=== PATIENT | male | born 1950 | race Caucasian/White ===

== ENCOUNTER 2021-10-02 10:55 | Outpatient (CLI) | payer MEDICARE, OTHER, SELFPAY ==
--- NOTE | ~2021-10-02 | US_ITS ---
EXAMINATION: US carotid duplex BI DATE: 10/02/2021 11:26 INDICATION: Carotid stenosis TECHNIQUE: Grayscale, color Doppler, and pulsed Doppler images of the cervical carotid arteries were obtained. The degree of vessel stenosis is placed in one of the following categories: normal, <50%, 5 0-69%, >=70% but less than near-occlusion, near-occlusion, or total occlusion. Note that percent sten osis relative to normal distal artery lumen diameter is indirectly measured from velocity measurement s as described by Scar, et al. Radiology 2003; 229:340-346. COMPARISON: 09/29/2021 FINDINGS: RIGHT: The right common carotid artery (CCA) peak systolic velocity (PSV) is 110 cm/s. The right internal ca rotid artery (ICA) PSV is 166 cm/s. The right ICA end-diastolic velocity (EDV) is 30 cm/s. The right ICA/CCA PSV ratio is 1.5. Grayscale and color Doppler images yield an estimate of 50-69% diameter red uction from plaque in the ICA. The external carotid artery (ECA) PSV is 155 cm/s. There is antegrade flow in the right vertebral artery. LEFT: The left CCA PSV is 135 cm/s. The left ICA PSV is 118 cm/s. The left ICA EDV is 30 cm/s. The left ICA /CCA PSV ratio is 0.9. Grayscale and color Doppler images yield an estimate of <50% diameter reductio n from plaque in the ICA. The ECA PSV is 100 cm/s. There is antegrade flow in the left vertebral tanya ry. IMPRESSION: 1. 50-69% stenosis in the right internal carotid artery. 2. <50% stenosis in the left internal carotid artery. Reviewed, dictated and finalized at location A.
== END 2021-10-02 10:56 | disposition home or self-care (01) ==
LOC: ANHIMG 11:01
PROVIDERS: PCP Internal Medicine; Visit Provider Internal Medicine Cardiovascular Disease
DX: I65.23 Occlusion and stenosis of bilateral carotid arteries (principal)
CPT/HCPCS: 93880

== ENCOUNTER 2024-05-10 12:27 | Outpatient (CLI) | payer MEDICARE, SELFPAY ==
--- NOTE | ~2024-05-10 | US_ITS ---
EXAMINATION: US carotid duplex BI DATE: 05/10/2024 13:48 INDICATION: Carotid stenosis TECHNIQUE: Grayscale, color Doppler, and pulsed Doppler images of the cervical carotid arteries were obtained. The degree of vessel stenosis is placed in one of the following categories: normal, <50%, 5 0-69%, >=70% but less than near-occlusion, near-occlusion, or total occlusion. Note that percent sten osis relative to normal distal artery lumen diameter is indirectly measured from velocity measurement s as described by Scar, et al. Radiology 2003; 229:340-346. Notes: Normal: Peak systolic velocity <125 centimeters/sec and no plaque <50%. Peak systolic velocity <125 ( EDV <40; ICA/CCA PSV ratio <2.0; used these factors only a tandem lesions or low cardiac output or co ntralateral disease) 50-69 %: PSV 125-230 (EDV 40-100; ratio 2-4) >= 70% but less than near occlusion: PSV greater than 230 (EDV > 100; ratio> 4.0) Near Occlusion: PSV that is variable; markedly narrowed lumen Occlusion: Absent flow on color/spectral Doppler and no lumen on ross scale. COMPARISON: None. FINDINGS: RIGHT: The right common carotid artery (CCA) peak systolic velocity (PSV) is 101 cm/s. The right internal ca rotid artery (ICA) PSV is 179 cm/s. The right ICA end-diastolic velocity (EDV) is 36 cm/s. The right ICA/CCA PSV ratio is 1.8. The external carotid artery (ECA) PSV is 162 cm/s. There is antegrade flow in the right vertebral artery. LEFT: The left CCA PSV is 144 cm/s. The left ICA PSV is 119 cm/s. The left ICA EDV is 19 cm/s. The left ICA /CCA PSV ratio is 0.8. The ECA PSV is 93 cm/s. There is antegrade flow in the left vertebral artery. IMPRESSION: 1. 50-69% stenosis in the right internal carotid artery by sonographic criteria. 2. Less than 50% stenosis in the left internal carotid artery by sonographic criteria. Reviewed, dictated and finalized at location A. IMPRESSION: 1. 50-69% stenosis in the right internal carotid artery by sonographic criteria . 2. Less than 50% stenosis in the left internal carotid artery by sonographic cr iteria.
--- OUTSIDE RECORDS SUMMARY | 2024-05-10 13:33 | XMS_ITS | Clinical Summary ---
Author Organization [facility] [place] [address] Address [address] [place] [address] Care Team Providers Care Sales Inspector Name Role Phone Rommel Soto MD Primary Care Provider Allergies No known active allergies Medications metFORMIN (GLUCOPHAGE) 1,000 mg tablet take 1 tablet by oral route 2 times every day with morning and evening meals 0 0 12/12/19 15 Active aspirin (ASPIR-81) 81 mg tablet take 1 tablet by oral route every day 0 0 12/12/19 15 Active glimepiride (AMARYL) 2 mg tablet take 1 tablet by oral route every day 0 0 12/12/19 15 Active multivitamin tablet tablet take 1 tablet by oral route every day with food 0 0 07/09/19 16 Active nitroglycerin (NITROLINGUAL) 400 mcg/spray spray Place 1 spray under the tongue every 5 (five) minutes as needed for chest pain 4.9 g 2 12/31/19 21 Active Farxiga 5 mg tablet 02/28/19 22 Active rosuvastatin (CRESTOR) 20 mg tablet Take 1 tablet (20 mg total) by mouth daily 90 tablet 3 04/28/19 25 Active lisinopriL (PRINIVIL,ZEST RIL) 40 mg tablet Take 1 tablet (40 mg total) by mouth daily 90 tablet 3 04/28/19 25 Active metoprolol XL (TOPROL-XL) 50 mg extended release tablet Take 1 tablet (50 mg total) by mouth daily 90 tablet 3 04/28/19 25 Active metoprolol XL (TOPROL-XL) 50 mg extended release tablet Take 1 tablet (50 mg total) by mouth daily 90 tablet 02/16/19 25 025 Discontinued(Re order) rosuvastatin (CRESTOR) 20 mg tablet Take 1 tablet (20 mg total) by mouth daily 90 tablet 02/16/19 25 025 Discontinued lisinopriL (PRINIVIL,ZEST RIL) 40 mg tablet TAKE 1 TABLET(40 MG) BY MOUTH DAILY 90 tablet 03/10/19 25 025 Discontinued(Re order) rosuvastatin (CRESTOR) 20 mg tablet TAKE 1 TABLET(20 MG) BY MOUTH DAILY 30 tablet 04/25/19 25 025 Discontinued(Re order) Active Problems Problem Noted Date Diagnosed Date Carotid stenosis, bilateral 03/25/2021 Abnormal stress test 05/14/2020 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) 07/09/2015 Overview (05/22/2016): DM type 2 with diabetic dyslipidemia Hypertension associated with diabetes 12/11/2014 Overview (05/21/2016): HTN (hypertension), benign Simple obesity 12/11/2014 Overview (05/21/2016): Obesity due to excess calories, unspecified obesity severity Coronary artery disease invo lving s[place] coronary artery of [place] heart without angina pectoris 12/11/2014 Overview (05/21/2016): Coronary artery disease involving [place] coronary artery of [place] heart without angina pectoris History of coronary artery bypass surgery 2014 Overview (05/21/2016): S/P CABG (coronary artery bypass graft) Peripheral arterial occlusive disease 12/11/2014 Overview (05/21/2016): PAD (peripheral artery disease) Resolved Problems Problem Noted Date Diagnosed Date Resolved Date Carotid artery disease ([facility]) 12/30/2015 03/25/2021 Overview (05/21/2016): Bilateral carotid artery disease Dyslipidemia 12/11/2014 03/25/2021 Overview (05/21/2016): Mixed dyslipidemia Encounters Date Type Department Care Team Description 04/27/2024 8:00 AM CDT Office Visit [facility] Cardiology [address] [place] [address] Alec Carrion MD Coronary artery disease involving sokaogon coronary artery of [place] heart without angina pectoris (Primary Dx); Carotid stenosis, bilateral; Mixed 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 (CMS/HCC) (HCC); History of coronary artery bypass surgery; Hypertension associated with diabetes ([facility]) 04/27/2024 Orders Only [facility] Cardiology [address] [place] [phone] ProviderGrace MD 02/17/2024 Telephone [facility] Cardiology [address] [place] [phone] Alec Carrion MD from Last 3 Months Surgical History Surgery Date Site/Laterality Comments ANGIOPLASTY 06/2009 CORONARY ARTERY BYPASS GRAFT 09/24/1999 Medical History Medical History Date Comments Hypertension Coronary artery disease Diabetes mellitus (HCC) 09/24/1999 Heart disease 09/24/1999 Family History Medical History Relation Name Comments Early Brother 2 Elijah Paezt Other Brother 2 Elijah Redman Alive and well; Heart attack Father Qamar Redman Myocardial infa rction; Cause of : Myocardial infarction Stroke Mother Basia Redman Stroke; Other Sister 2 Alive and well; Relation Name Status Comments Brother 1 Alive Brother 2 Elijah Юлия Father Qamar Redman (Age 57) Mother Basia Redman (Age 79) Sister 1 Alive Sister 2 Social History Tobacco Use Types Packs/Day Years Used Date Smoking Tobacco: Never Smokeless Tobacco: Never Tobacco Cessation:Counseling Given: Not Answered Alcohol Use Standard Drinks/Week Comments Yes 0 (1 standard drink = 0.6 oz pur e alcohol) Sex and Gender Information Value Date Recorded Sex Assigned at Not on file Legal 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 Gender Identity Male 01/02/2020 4:19 PM [employer]ED PROJECT ENGINEER Sexual Orientation Straight 01/02/2020 4: 19 PM FEED PROJECT ENGINEER Obstetrics History Last Filed Vital Signs Vital Sign Reading Time Taken Comments Blood Pressure 160/80 04/27/2024 7:47 AM CDT Pulse 81 04/27/2024 7:47 AM CDT Temperature - - Respiratory Rate 12 12/25/2016 2:19 PM FEED PROJECT ENGINEER Oxygen Saturation 97% 04/27/2024 7:47 AM CDT Inhaled Oxygen Concentration - - Weight 83.3 kg (183 lb 11.2 oz) 04/27/2024 7:47 AM CDT Height 182.9 cm (6') 04/27/2024 7:47 AM CDT Body Mass Index 24.91 04/27/2024 7:47 AM CDT Plan of Treatment Health Maintenance Due Date Last Done Comments Albumin Creatinine Ratio, Urine 1948 Colon Cancer Screening-Colonoscopy 1948 Depression Screening 1948 Fall Risk Assessment 1948 Hemoglobin A1C 1948 Hepatitis C Screening 1948 eGFR 1948 Dilated Eye Exam 1948 Foot Exam 1948 DTaP/Tdap/Td Vaccine (1 - Tdap) 09/05/1959 Hepatitis B Screening 1966 Zoster Vaccine (2 of 3) 04/01/2012 02/05/2012 Well Visit 65+ 2013 Covid-19 Vaccine (8 - 2023-2 5 season) 2024 11/01/2023, 11/28/2022, 10/22/2021, Additional history exists Lipid Panel 04/27/2025 04/27/2024, 08/2024, 11/02/2022, Additional history exists Pneumococcal vaccine 65+ Completed 03/22/2017, 03/18 Influenza Vaccine Completed 11/01/2023, , 11/14/2021, Additional history exists Procedures Procedure Name Priority Date/Time Associated Diagnosis Comments POCT LIPID PANEL Routine 04/27/2024 8:38 AM CDT Carotid stenosis, bilateral LIPID PANEL Routine 04/21/2024 10:39 AM FEED PROJECT ENGINEER SCAN - LABS Routine 04/21/2024 8:23 AM FEED PROJECT ENGINEER from Last 3 Months Results * POCT lipid panel (04/27/2024 8:38 AM CDT) Cholesterol, POC 106 mg/dL Comment:GLU = 196 HDL, POC 29 mg/dL Triglycerides, POC 457 mg/dL LDL Cholesterol POC N/A mg/dL Chol/HDL Ratio, POC N/A Non-HDL Cholesterol, POC 76 mg/dL Cholesterol Total, POC 106 mg/dL Capillary blood 04/27/2024 8 :38 AM CDT [facility] Elgin Carrion MD POINT OF CARE TEST MARIE ROBERTSON Final Result * Lipid panel (04/21/2024 10:39 AM FEED PROJECT ENGINEER) SCRIBED Cholesterol, Total 127 <200 [facility] SCRIB[facility] HDL 41 >39 [facility] S[facility] LDL 63 <130 [facility] S[facility] Triglycerides 142 <150 [facility] Blood Historical Provider LAB BLOOD ORDERABLES Edit ed Result - Final [facility] * SCAN - LABS (04/21/2024 8:23 AM FEED PROJECT ENGINEER) Historical Provider Final Res ult from Last 3 Months Insurance MEDICARE MEDICARE [employer] Care Teams Sales Inspector Relationship Specialty Start Date End Date Rommel Soto MD PCP - General 05/15/16
--- OUTSIDE RECORDS SUMMARY | 2024-05-10 13:33 | XMS_ITS | CONTINUITY OF CARE DOCUMENT ---
Author Name ingris amado Address Unknown Organization [facility] Address [address] [place] [address] Phone [phone] Care Team Providers Care Frame Carver Spindle Name Role Phone Noemy HALL, Isaac Unavailable [phone] NEREIDA CHOUDHARY MD Unavailable NEREIDA CHOUDHARY MD Unavailable PROBLEMS Condition Status Date Provider Notes FAMILY HX HEART DISEASE active Stella kothari OBESITY, MILD completed - Isaac Salguero MD AMI, SUBENDOCARDIAL;1999 active Isaac hicks MD DIABETES MELLITUS active Isaac Salguero MD HEPATITIS A;HIGH SCHOOL active Isaac schmidt MD CAD;NEG DUOLEX 12 active Isaac Salguero MD CABG; SHANTE & 3 V OPEN, 1 V CLOSED 2009 active Isaac Salguero MD FATIGUE completed - Isaac Salguero MD ANGINA PECTORIS;WILL CATH completed 06/20 - Isaac Salguero MD STENT - BARE METAL;TO OM 201 0 FOR COMPLETE REVASCUZATION active Isaac Salguero MD LOW HDL;ON NIASPAN MAX DOSE active Isaac garcía MD HYPERTRIGLYCERIDEMIA;ON FISH OIL active Isaac Salguero MD Hyperlipidemia, unspecified active Becky armas RN AMI, INFERIOR WALL;BY EKG 2009 active 2 - Isaac Salguero MD AORTIC VALVE SCLEROSIS;NML L V 12 active Isaac Salguero MD DIASTOLIC DYSFUNCTION;EF 52% 2010 completed - Isaac Salguero MD PVD;DISTAL BY TRAY active Yomaira Corral HTn; LABS PER PRIMARY, active Isaac Salguero MD MITRAL REGURGITATION, MILD active Isaac velasquez MD Overweight;will consider t pill active Isaac Salguero MD ENCOUNTERS Date Type Provider Location Encounter Diag nosis - In-person encounter Office Visit Isaac Salguero MD [facility] Hyperlipidemia, unspecifiedHTn; LABS PER PRIMARY,Overweight;will consider diet pill - In-person encounter Office Visit Isaac Salguero MD [facility] PVD;DISTAL BY TRAY - In-person encounter Office Visit Isaac Salguero MD [facility] CAD;NEG DUOLEX 12Hyperlipidemia, unspecifiedAORTIC VALVE SCLEROSIS;NML LV 12DIASTOLIC DYSFUNCTION;EF 52% 2010PVD;DISTAL BY ABIHTn; LABS PER PRIMARY,MITRAL REGURGITATION, MILD - In-person encounter Office Visit Isaac Salguero MD [facility] Hyperlipidemia, unspecifiedPVD;DISTAL BY ABIHTn; LABS PER PRIMARY, - In-person encounter Office Visit Isaac Salguero MD [facility] OBESITY, [place];NEG DUOLEX 12CABG; SHANTE & 3 V OPEN, 1 V CLOSED 2010FATIGUELOW HDL;ON NIASPAN MAX DOSEHYPERTRIGLYCERIDEMIA ;ON FISH OILAMI, INFERIOR WALL;BY EKG 2010AORTIC VALVE SCLEROSIS;NML LV 12 - In-person encounter Office Visit Isaac Salguero MD [facility] CAD;NEG DUOLEX 12CABG; SHANTE & 3 V OPEN, 1 V CLOSED 2010ANGINA PECTORIS;WILL CATHSTENT - BARE METAL;TO OM 2009 FOR COMPLETE REVASCUZATIONLOW HDL;ON NIASPAN MAX DOSEHYPERTRIGLYCERIDEMIA ;ON FISH OILHyperlipidemia, unspecified - In-person encounter Office Visit Isaac Salguero MD [facility] AMI, SUBENDOCARDIAL;2000DIABE ROBIN MELLITUSHEPATITIS A;HIGH SCHOOLCAD;NEG DUOLEX 12CABG; SHANTE & 3 V OPEN, 1 V CLOSED 2009 VITAL SIGNS Date Observation Value Provider Body Mass Index (Ratio) 28.07 kg/m2 Anea josafat [facility] blood pressure, diastolic 70 mm[Hg] An eatris [facility] blood pressure, systolic 128 mm[Hg] Ane atris [facility] pulse rate 73 /min Aneatris [facility] oxygen saturation, oximetry 98 % Aneatris [facility] respiratory rate E&M 16 /min Aneatri s [facility] weight E&M 207 [lb_av] Aneatris [facility] Body Mass Index (Ratio) 27.63 kg/m2 Juju corcoran Yeager blood pressure, diastolic 90 mm[Hg] Ne fadi Yeager blood pressure, systolic 158 mm[Hg] Jennifer espinozaa [facility] pulse rate 76 /min Linn Yeager oxygen saturation, oximetry 98 % Linn Yeager respiratory rate E&M 12 /min Linn Yeager weight E&M 203 [lb_av] Linnwayne Yeager blood pressure, diastolic, left arm 79 mm [Hg] Jean Rico RN blood pressure, systolic, left arm 153 mm [Hg] Jean Rico RN blood pressure, diastolic, right arm 75 m m[Hg] Jean Rico RN blood pressure, systolic, right arm 130 m m[Hg] Jean Rico RN blood pressure, diastolic 79 mm[Hg] Russell Rico RN blood pressure, systolic 153 mm[Hg] Jean Rico RN pulse rate 59 /min Jean Rico RN oxygen saturation, oximetry 97 % Jean Rico RN respiratory rate E&M 18 /min Jean phoenix RN Body Mass Index (Ratio) 27.90 kg/m2 Jean Rico RN weight E&M 205 [lb_av] Jean Hatchs RN height E&M 72 [in_i] Jean Hatchs RN blood pressure, diastolic, left arm 86 mm [Hg] Jean Hatchs RN blood pressure, systolic, left arm 143 mm [Hg] Jean Hatchs RN blood pressure, diastolic, right arm 94 m m[Hg] Jean Hatchs RN blood pressure, systolic, right arm 159 m m[Hg] Jean Hatchs RN blood pressure, diastolic 86 mm[Hg] Russell Rico RN blood pressure, systolic 143 mm[Hg] Jean Hatchs RN pulse rate 72 /min Jean Rico RN oxygen saturation, oximetry 98 % Jean Hatchs RN respiratory rate E&M 16 /min Jean fontaines RN weight E&M 197 [lb_av] Jean Hatchs RN blood pressure, diastolic, left arm 83 mm [Hg] Jean Hatchs RN blood pressure, systolic, left arm 159 mm [Hg] Jean Hatchs RN blood pressure, diastolic, right arm 87 m m[Hg] Jean Hatchs RN blood pressure, systolic, right arm 153 m m[Hg] Jean Hatchs RN blood pressure, diastolic 83 mm[Hg] Russell Rico RN blood pressure, systolic 159 mm[Hg] Jean Hatchs RN pulse rate 62 /min Jean Rico RN oxygen saturation, oximetry 98 % Jean Hatchs RN respiratory rate E&M 18 /min Jean Vang rks RN weight E&M 189 [lb_av] Jean Hatchs RN blood pressure, diastolic, left arm 72 mm [Hg] Jean Rico RN blood pressure, systolic, left arm 134 mm [Hg] Jean Rico RN blood pressure, diastolic, right arm 92 m m[Hg] Jean Rico RN blood pressure, systolic, right arm 142 m m[Hg] Jean Hatchelizabeth HANDLEY blood pressure, diastolic 72 mm[Hg] Russell ponce Rico RN blood pressure, systolic 134 mm[Hg] Jean Hatchelizabeth HANDLEY pulse rate 77 /min Jean Hatchelizabeth HANDLEY oxygen saturation, oximetry 99 % Jean Hatchelizabeth HANDLEY respiratory rate E&M 16 /min Jean phoenix RN weight E&M 207 [lb_av] Jean Rico RN blood pressure, diastolic 94 mm[Hg] Da marrybebeto Jovany blood pressure, systolic 138 mm[Hg] Irwin delorisfer Manzo pulse rate 83 /min Slime Manzo oxygen saturation, oximetry 96 % Slime Manzo respiratory rate E&M 83 /min Cesar Manzo weight E&M 221 [lb_av] Slime Manzo ALLERGIES No Known Drug Allergies RESULTS Date Observation Value Provider Reference Range Interpretation Location cholesterol, serum 144 mg/dL [facility] creatinine, serum 0.92 mg/dL [facility] HDL cholesterol, serum 45 mg/dL [facility] triglyceride, serum, fasting 190 mg/dL [facility] lipoprotein, beta, serum, point, quantitative, calculated 77 mg/dL [facility] cholesterol, serum 160 mg/dL [facility] alanine aminotransferase (SGPT), serum 28 1/L [facility] aspartate aminotransferase (SGOT), serum 28 1/L [facility] creatinine, serum 0.95 mg/dL [facility] potassium, serum 4.1 mmol/L [facility] sodium, serum 138 mmol/L [facility] lipoprotein, beta, serum, point, quantitative, calculated 71 [facility], serum 133 mg/dL [facility] alanine aminotransferase (SGPT), serum 25 1/L [facility] aspartate aminotransferase (SGOT), serum 31 1/L [facility] creatinine, serum 1.05 mg/dL [facility] potassium, serum 4.6 mmol/L [facility] sodium, serum 139 mmol/L [facility] triglyceride, serum, fasting 229 mg/dL [facility] HDL cholesterol, serum 33 mg/dL [facility] LDL cholesterol, serum 91 mg/dL [facility] cholesterol, serum 170 mg/dL [facility] anion gap, serum 12.4 [facility] globulins, serum, total 3.0 g/dL [facility] estimated glomerular filtration rate >60 [facility] albumin/globulin ratio, serum 1.5 [facility] protein, total, serum 7.4 g/dL [facility] albumin, serum 4.4 g/dL [facility] bilirubin, serum, total 0.80 mg/dL [facility] alkaline phosphatase, serum 101 1/L [facility] alanine aminotransferase (SGPT), serum 55 1/L [facility] aspartate aminotransferase (SGOT), serum 27 1/L [facility] calcium, serum 9.5 mg/dL [facility] blood glucose, fasting 99 mg/dL [facility] creatinine, serum 1.03 mg/dL [facility] urea nitrogen, blood 14.1 mg/dL [facility] carbon dioxide, serum, total 28 mmol/L [facility] chloride, serum 105 mmol/L [facility] potassium, serum 4.4 mmol/L [facility] sodium, serum 141 mmol/L [facility] PTT patient 25.8 s [facility] prothrombin time (patient) 10.5 s [facility] international normalized ratio (INR) 1.0 Prasad Maradiaga platelet count 296 10*3/uL Prasad Maradiaga red blood cell distribution width 13.6 % Prasad Maradiaga mean corpuscular hemoglobin concentration, RBC 36.1 g/dL Prasad Maradiaga mean corpuscular hemoglobin, RBC 29.9 pg Prasad Maradiaga mean corpuscular volume, RBC 82.7 fL Prasad Maradiaga hematocrit, blood 46.5 % Prasad Maradiaga hemoglobin, blood 16.8 g/dL Prasad Maradiaga erythrocyte (RBC) count 5.62 10*6/mm3 Prasad Maradiaga monocytes as percent of blood leukocytes 9.9 % Prasad Maradiaga lymphocytes as percent of blood leukocytes 22.3 % Prasad Maradiaga leukocyte count, blood 5.6 10*3/mm3 Prasad Maradiaga HISTORY OF MEDICATION USE Medication Status Instructions Dates Provider Indications Com ments INVOKANA TABLET active 150mg QD 7 Linn Yeager CRESTOR 20 MG ORAL TABLET active ONE TAB. DAILY 2 Becky Bean RN QSYMIA 7.5-46 MG ORAL CAPSULE EXTENDED RELEASE 24 HOUR completed one tablet daily 8 - 2 Becky Bean RN QSYMIA 3.75-23 MG ORAL CAPSULE EXTENDED RELEASE 24 HOUR completed one tablet daily 8 - 2 Becky Bean RN ASPIRIN 81 MG ORAL TABLET active ONE TAB. DAILY 8 Isaac Salguero MD COMPASS PROTONIX VS PLACEBO completed 2 - 8 Kiara García COMPASS ASA/ RIVAROXABAN completed 9 - 8 Kiara García ASPIRIN 81 MG ORAL TABLET completed ONE TAB. DAILY 6 - 9 Becky Bean RN PLAVIX 75 MG ORAL TABLET completed ONE TAB. DAILY 6 - 6 Isaac Salguero MD MULTIVITAMINS ORAL CAPSULE active ONE TAB. DAILY Jean Rico RN NITROLINGUAL 0.4 MG/SPRAY TRANSLINGUAL SOLUTION active 1 spray as needed for chest discomfort 4 Isaac Salguero MD NORVASC 10 MG ORAL TABLET completed ONE TAB. DAILY 6 - 0 Jean Rico RN GLIMEPIRIDE 2 MG ORAL TABLET active 2mg bid 2 Becky Bean RN NIACIN ER 1000 MG ORAL TABLET EXTENDED RELEASE completed 2 tab daily - 1 Becky Bean RN FISH OIL CAPSULE active 1200 mg ONE TAB . DAILY Jean Rico RN SIMVASTATIN 40 MG ORAL TABLET completed ONE TAB. DAILY - 1 Becky Bean RN METFORMIN HCL 1000 MG ORAL TABLET active take daily Slime Manzo LISINOPRIL 40 MG ORAL TABLET active ONE TAB. DAILY Slime Manzo METOPROLOL SUCCINATE ER 50 MG ORAL TABLET EXTENDED RELEASE 24 HOUR active one tab. daily 6 Slime Manzo SOCIAL HISTORY Date Observation Value Provider social history reviewed E&M revi ewed - no changes required Isaac Salguero MD smoking status Never smoker Kiara ponce social history reviewed E&M reviewed Isaac Salguero MD passive cigarette sm mala exposure no Jean Rico RN drug use no Jean Rico RN social history reviewed E&M reviewed Jean Rico RN smoking status never smoker Jean Rico RN social history reviewed E&M reviewed Jean Rico RN social history reviewed E&M reviewed Jean Rico RN social history reviewed E&M reviewed Jean Rico RN social history E&M Marital Statu s: E thnicity: Isaac Salguero MD social history reviewed E&M reviewed Isaac Salguero MD physical exercise, f requency, days per week yes [employer] caffeine use, averag e drinks per day no [employer] alcohol use, average drinks per day social basis only [employer] smoking status Non-smoker [employer] MENTAL STATUS Date Observation Value Provider assessment of judgme nt and insight E&M Alert and oriented to time, place and person. Mood and affect are normal. Isaac Salguero MD assessment of judgme nt and insight E&M Alert and oriented to time, place and person. Mood and affect are normal. Jean Rico RN assessment of judgme nt and insight E&M Alert and oriented to time, place and person. Mood and affect are normal. Jean Rico RN assessment of judgme nt and insight E&M Alert and oriented to time, place and person. Mood and affect are normal. Jean Rico RN assessment of judgme nt and insight E&M Alert and oriented to time, place and person. Mood and affect are normal. Jean Rico RN assessment of judgme nt and insight E&M Alert and oriented to time, place and person. Mood and affect are normal. Isaac Salguero MD FAMILY HISTORY Family Member Condition Father Family History of Co ronary Artery Disease: Mother Family History of CV A or Stroke: INSURANCE PROVIDERS Payer name Policy type / Coverage type [place] red libertarian ID [facility] [id number] [place] [employer] Medicare [id number] TREATMENT PLAN Date Name Performer follow up: H is updated medication list for this problem includes: Metoprolol Succinate 50 Mg Tb24 (Metoprolol succinate) ..... One tab. daily Lisinopril 40 Mg Tabs (Lisinopril) ..... One tab. daily Nitrolingual 0.4 Mg/spray Soln (Nitroglycerin) ..... 1 spray as needed for chest discomfort Isaac Salguero MD follow up Isaac Salguero MD FOLLOW UP: H is updated medication list for this problem includes: Metoprolol Succinate 50 Mg Tb24 (Metoprolol succinate) ..... One tab. daily Lisinopril 40 Mg Tabs (Lisinopril) ..... One tab. daily Aspirin 81 Mg Tabs (Aspirin) ..... One tab. daily Isaac Salguero MD FOLLOW UP: T he following medications were removed from the medication list: Plavix 75 Mg Tabs (Clopidogrel bisulfate) ..... One tab. daily His updated medication list for this problem includes: Metoprolol Succinate 50 Mg Tb24 (Metoprolol succinate) ..... One tab. daily Lisinopril 40 Mg Tabs (Lisinopril) ..... One tab. daily Simvastatin 40 Mg Tabs (Simvastatin) ..... One tab. daily Aspirin 81 Mg Tabs (Aspirin) ..... One tab. daily Niacin Er 1000 Mg Cr-tabs (Niacin) ..... One tablet twice daily Nitrolingual 0.4 Mg/spray Soln (Nitroglycerin) ..... 1 spray as needed for chest discomfort Isaac Salguero MD FOLLOW UP:sees darvin Aden MD FOLLOW UP:bryce nuc 07/28, will do compass Isaac Salguero MD routine Isaac Salguero MD routine Isaac Salguero MD routine: H is updated medication list for this problem includes: Metoprolol Succinate 50 Mg Tb24 (Metoprolol succinate) ..... One tab. daily Lisinopril 40 Mg Tabs (Lisinopril) ..... One tab. daily Simvastatin 40 Mg Tabs (Simvastatin) ..... One tab. daily Aspirin 81 Mg Tabs (Aspirin) ..... One tab. daily Niaspan 1000 Mg Tbcr (Niacin (antihyperlipidemic)) ..... Two tabs. at bedtime - dispense as written Plavix 75 Mg Tabs (Clopidogrel bisulfate) ..... One tab. daily Nitrolingual 0.4 Mg/spray Soln (Nitroglycerin) ..... 1 spray as needed for chest discomfort B P today: / Prior BP: 143/86 (07/30/2011) C ardiac Cath: Normal LV systolic function and hemodynamics with EF 75%. Severe three-vessel CAD with near complete revascularization by an SHANTE and three separate vein grafts. Howeer, the only area of ischemia is the 80% first obtuse marginal because the bifurcating vein graft from the diagonal to it is 100% occluded. [facility] (06/24/2009) C ardiac Cath Comments: Successful Vision stenting of the first obtuse marginal 2.0 x 12mm Vision stent [facility] (06/24/2009) C arotid Doppler/Duplex: 50 - 69% stenosis of the ICA bilaterally. Vertebral flow is antegrade bilaterally. - [facility] (01/29/2011) C HOL: 160 (06/06/2012) LDL: 77 (06/06/2012) HDL: 45 (06/06/2012) T (06/06/2012) H gb: 16.8 (06/20/2009) HCT: 46.5 (06/20/2009) RBC: 5.62 (06/20/2009) WBC: 5.6 (06/20/2009) B UN: 14.1 (06/20/2009) Creat: 0.95 (06/06/2012) Glucose: 99 (06/20/2009) N a+: 138 (06/06/2012) K+: 4.1 (06/06/2012) Cl: 105 (06/20/2009) PT: 10.5 (06/20/2009) INR: 1.0 (06/20/2009) P TT: 25.8 (06/20/2009) Isaac Salguero MD routine: H is updated medication list for this problem includes: Simvastatin 40 Mg Tabs (Simvastatin) ..... One tab. daily Niaspan 1000 Mg Tbcr (Niacin (antihyperlipidemic)) ..... Two tabs. at bedtime - dispense as written BP today: / Prior BP: 143/86 (07/30/2011) C HOL: 160 (06/06/2012) LDL: 77 (06/06/2012) HDL: 45 (06/06/2012) T (06/06/2012) Isaac Salguero MD routine: H is updated medication list for this problem includes: Lisinopril 40 Mg Tabs (Lisinopril) ..... One tab. daily Metformin Hcl 1000 Mg Tabs (Metformin hcl) ..... Take daily Aspirin 81 Mg Tabs (Aspirin) ..... One tab. daily Glimepiride 2 Mg Tabs (Glimepiride) ..... 2mg am 1mg pm BP today: / Prior BP: 143/86 (07/30/2011) Labs Reviewed: C reat: 0.95 (06/06/2012) Isaac Salguero MD routine: H is updated medication list for this problem includes: Simvastatin 40 Mg Tabs (Simvastatin) ..... One tab. daily Niaspan 1000 Mg Tbcr (Niacin (antihyperlipidemic)) ..... Two tabs. at bedtime - dispense as written BP today: / Prior BP: 143/86 (07/30/2011) C HOL: 160 (06/06/2012) LDL: 77 (06/06/2012) HDL: 45 (06/06/2012) T (06/06/2012) Isaac Salguero MD routine Isaac Salguero MD routine Isaac Salguero MD routine: H is updated medication list for this problem includes: Metoprolol Succinate 50 Mg Tb24 (Metoprolol succinate) ..... One tab. daily Lisinopril 40 Mg Tabs (Lisinopril) ..... One tab. daily Simvastatin 40 Mg Tabs (Simvastatin) ..... One tab. daily Aspirin 81 Mg Tabs (Aspirin) ..... One tab. daily Niaspan 1000 Mg Tbcr (Niacin (antihyperlipidemic)) ..... Two tabs. at bedtime - dispense as written Plavix 75 Mg Tabs (Clopidogrel bisulfate) ..... One tab. daily Nitrolingual 0.4 Mg/spray Soln (Nitroglycerin) ..... 1 spray as needed for chest discomfort B P today: / Prior BP: 143/86 (07/30/2011) C ardiac Cath: Normal LV systolic function and hemodynamics with EF 75%. Severe three-vessel CAD with near complete revascularization by an SHANTE and three separate vein grafts. Howeer, the only area of ischemia is the 80% first obtuse marginal because the bifurcating vein graft from the diagonal to it is 100% occluded. [facility] (06/24/2009) C ardiac Cath Comments: Successful Vision stenting of the first obtuse marginal 2.0 x 12mm Vision stent [facility] (06/24/2009) C arotid Doppler/Duplex: 50 - 69% stenosis of the ICA bilaterally. Vertebral flow is antegrade bilaterally. - [facility] (01/29/2011) C HOL: 160 (06/06/2012) LDL: 77 (06/06/2012) HDL: 45 (06/06/2012) T (06/06/2012) H gb: 16.8 (06/20/2009) HCT: 46.5 (06/20/2009) RBC: 5.62 (06/20/2009) WBC: 5.6 (06/20/2009) B UN: 14.1 (06/20/2009) Creat: 0.95 (06/06/2012) Glucose: 99 (06/20/2009) N a+: 138 (06/06/2012) K+: 4.1 (06/06/2012) Cl: 105 (06/20/2009) PT: 10.5 (06/20/2009) INR: 1.0 (06/20/2009) P TT: 25.8 (06/20/2009) Isaac Salguero MD routine: H is updated medication list for this problem includes: Metoprolol Succinate 50 Mg Tb24 (Metoprolol succinate) ..... One tab. daily Lisinopril 40 Mg Tabs (Lisinopril) ..... One tab. daily Simvastatin 40 Mg Tabs (Simvastatin) ..... One tab. daily Aspirin 81 Mg Tabs (Aspirin) ..... One tab. daily Niaspan 1000 Mg Tbcr (Niacin (antihyperlipidemic)) ..... Two tabs. at bedtime - dispense as written Plavix 75 Mg Tabs (Clopidogrel bisulfate) ..... One tab. daily Nitrolingual 0.4 Mg/spray Soln (Nitroglycerin) ..... 1 spray as needed for chest discomfort B P today: / Prior BP: 143/86 (07/30/2011) C ardiac Cath: Normal LV systolic function and hemodynamics with EF 75%. Severe three-vessel CAD with near complete revascularization by an SHANTE and three separate vein grafts. Howeer, the only area of ischemia is the 80% first obtuse marginal because the bifurcating vein graft from the diagonal to it is 100% occluded. [facility] (06/24/2009) C ardiac Cath Comments: Successful Vision stenting of the first obtuse marginal 2.0 x 12mm Vision stent [facility] (06/24/2009) C arotid Doppler/Duplex: 50 - 69% stenosis of the ICA bilaterally. Vertebral flow is antegrade bilaterally. - [facility] (01/29/2011) C HOL: 160 (06/06/2012) LDL: 77 (06/06/2012) HDL: 45 (06/06/2012) T (06/06/2012) H gb: 16.8 (06/20/2009) HCT: 46.5 (06/20/2009) RBC: 5.62 (06/20/2009) WBC: 5.6 (06/20/2009) B UN: 14.1 (06/20/2009) Creat: 0.95 (06/06/2012) Glucose: 99 (06/20/2009) N a+: 138 (06/06/2012) K+: 4.1 (06/06/2012) Cl: 105 (06/20/2009) PT: 10.5 (06/20/2009) INR: 1.0 (06/20/2009) P TT: 25.8 (06/20/2009) Isaac Salguero MD routine: H is updated medication list for this problem includes: Metoprolol Succinate 50 Mg Tb24 (Metoprolol succinate) ..... One tab. daily Lisinopril 40 Mg Tabs (Lisinopril) ..... One tab. daily Aspirin 81 Mg Tabs (Aspirin) ..... One tab. daily Prior BP: 143/86 (07/30/2011) Labs Reviewed: C reat: 0.95 (06/06/2012) C hol: 160 (06/06/2012) HDL: 45 (06/06/2012) LDL: 77 (06/06/2012) T (06/06/2012) Isaac Salugero MD routine: H is updated medication list for this problem includes: Aspirin 81 Mg Tabs (Aspirin) ..... One tab. daily Plavix 75 Mg Tabs (Clopidogrel bisulfate) ..... One tab. daily Isaac Salguero MD routine Isaac Salguero MD routine Isaac Salguero MD routine: H is updated medication list for this problem includes: Metoprolol Succinate 50 Mg Tb24 (Metoprolol succinate) ..... One tab. daily Lisinopril 40 Mg Tabs (Lisinopril) ..... One tab. daily Simvastatin 40 Mg Tabs (Simvastatin) ..... One tab. daily Aspirin 81 Mg Tabs (Aspirin) ..... One tab. daily Niaspan 1000 Mg Tbcr (Niacin (antihyperlipidemic)) ..... Two tabs. at bedtime - dispense as written Plavix 75 Mg Tabs (Clopidogrel bisulfate) ..... One tab. daily Nitrolingual 0.4 Mg/spray Soln (Nitroglycerin) ..... 1 spray as needed for chest discomfort B P today: / Prior BP: 159/83 (07/31/2010) C ardiac Cath: Normal LV systolic function and hemodynamics with EF 75%. Severe three-vessel CAD with near complete revascularization by an SHANTE and three separate vein grafts. Howeer, the only area of ischemia is the 80% first obtuse marginal because the bifurcating vein graft from the diagonal to it is 100% occluded. [facility] (06/24/2009) C ardiac Cath Comments: Successful Vision stenting of the first obtuse marginal 2.0 x 12mm Vision stent [facility] (06/24/2009) C arotid Doppler/Duplex: 50 - 69% stenosis of the ICA bilaterally. Vertebral flow is antegrade bilaterally. - [facility] (01/29/2011) C HOL: 170 (06/20/2009) LDL: 91 (06/20/2009) HDL: 33 (06/20/2009) T (06/20/2009) H gb: 16.8 (06/20/2009) HCT: 46.5 (06/20/2009) RBC: 5.62 (06/20/2009) WBC: 5.6 (06/20/2009) B UN: 14.1 (06/20/2009) Creat: 1.03 (06/20/2009) Glucose: 99 (06/20/2009) N a+: 141 (06/20/2009) K+: 4.4 (06/20/2009) Cl: 105 (06/20/2009) PT: 10.5 (06/20/2009) INR: 1.0 (06/20/2009) P TT: 25.8 (06/20/2009) Orders: C omplete Echo (CPT-06197) S tress Test - Nuclear ([id number]) e Prescribe - Check this box if eRx is used (CPT-G8553) Isaac Salguero MD routine: H is updated medication list for this problem includes: Simvastatin 40 Mg Tabs (Simvastatin) ..... One tab. daily Niaspan 1000 Mg Tbcr (Niacin (antihyperlipidemic)) ..... Two tabs. at bedtime - dispense as written BP today: / Prior BP: 159/83 (07/31/2010) C HOL: 170 (06/20/2009) LDL: 91 (06/20/2009) HDL: 33 (06/20/2009) T (06/20/2009) Orders: C omplete Echo (CPT-54685) S tress Test - Nuclear ([id number]) e Prescribe - Check this box if eRx is used (CPT-G8553) Isaac Salguero MD routine: H is updated medication list for this problem includes: Simvastatin 40 Mg Tabs (Simvastatin) ..... One tab. daily Niaspan 1000 Mg Tbcr (Niacin (antihyperlipidemic)) ..... Two tabs. at bedtime - dispense as written BP today: / Prior BP: 159/83 (07/31/2010) C HOL: 170 (06/20/2009) LDL: 91 (06/20/2009) HDL: 33 (06/20/2009) T (06/20/2009) Orders: C omplete Echo (CPT-11337) S tress Test - Nuclear ([id number]) e Prescribe - Check this box if eRx is used (CPT-G8553) Isaac Salguero MD routine: H is updated medication list for this problem includes: Simvastatin 40 Mg Tabs (Simvastatin) ..... One tab. daily Niaspan 1000 Mg Tbcr (Niacin (antihyperlipidemic)) ..... Two tabs. at bedtime - dispense as written BP today: / Prior BP: 159/83 (07/31/2010) C HOL: 170 (06/20/2009) LDL: 91 (06/20/2009) HDL: 33 (06/20/2009) T (06/20/2009) Isaac Salguero MD routine: H is updated medication list for this problem includes: Metoprolol Succinate 50 Mg Tb24 (Metoprolol succinate) ..... One tab. daily Lisinopril 40 Mg Tabs (Lisinopril) ..... One tab. daily Nitrolingual 0.4 Mg/spray Soln (Nitroglycerin) ..... 1 spray as needed for chest discomfort BP today: / Prior BP: 159/83 (07/31/2010) H gb: 16.8 (06/20/2009) HCT: 46.5 (06/20/2009) RBC: 5.62 (06/20/2009) WBC: 5.6 (06/20/2009) B UN: 14.1 (06/20/2009) Creat: 1.03 (06/20/2009) Glucose: 99 (06/20/2009) N a+: 141 (06/20/2009) K+: 4.4 (06/20/2009) Cl: 105 (06/20/2009) CHOL: 170 (06/20/2009) LDL: 91 (06/20/2009) HDL: 33 (06/20/2009) T (06/20/2009) E chocardiogram: Technically difficult study, limited views secondary to poor acoustic windows. Interpretaion is based on available limited views. Normal left ventricular size. Normal left ventricular wall thickness. Hypokinesis is present in the anteroseptal wall. Mitral i nflow Doppler demonstrates pseudonormal pattern consistent with diastolic dysfunction. Normal E/E` 10.0. Left ventricular ejection fraction is estimated at 52%. There is mild enlargement of the left atrium. Mild mitral valve regurgitation. - GC (06/20/2009) C ardiac Cath: Normal LV systolic function and hemodynamics with EF 75%. Severe three-vessel CAD with near complete revascularization by an SHANTE and three separate vein grafts. Howeer, the only area of ischemia is the 80% first obtuse marginal because the bifurcating vein graft from the diagonal to it is 100% occluded. [facility] (06/24/2009) C ardiac Cath Comments: Successful Vision stenting of the first obtuse marginal 2.0 x 12mm Vision stent [facility] (06/24/2009) Orders: C omplete Echo (CPT-90619) S tress Test - Nuclear (16384) e Prescribe - Check this box if eRx is used (CPT-G8553) Isaac Salguero MD routine: O rders: C omplete Echo (CPT-82376) S tress Test - Nuclear (59619) e Prescribe - Check this box if eRx is used (CPT-G8553) Isaac Salguero MD routine: O rders: C omplete Echo (CPT-96391) S tress Test - Nuclear (16741) e Prescribe - Check this box if eRx is used (CPT-G8553) Isaac Salguero MD routine: H is updated medication list for this problem includes: Metoprolol Succinate 50 Mg Tb24 (Metoprolol succinate) ..... One tab. daily Lisinopril 40 Mg Tabs (Lisinopril) ..... One tab. daily Simvastatin 40 Mg Tabs (Simvastatin) ..... One tab. daily Aspirin 81 Mg Tabs (Aspirin) ..... One tab. daily Niaspan 1000 Mg Tbcr (Niacin (antihyperlipidemic)) ..... Two tabs. at bedtime - dispense as written Plavix 75 Mg Tabs (Clopidogrel bisulfate) ..... One tab. daily Nitrolingual 0.4 Mg/spray Soln (Nitroglycerin) ..... 1 spray as needed for chest discomfort B P today: / Prior BP: 159/83 (07/31/2010) C ardiac Cath: Normal LV systolic function and hemodynamics with EF 75%. Severe three-vessel CAD with near complete revascularization by an SHANTE and three separate vein grafts. Howeer, the only area of ischemia is the 80% first obtuse marginal because the bifurcating vein graft from the diagonal to it is 100% occluded. [facility] (06/24/2009) C ardiac Cath Comments: Successful Vision stenting of the first obtuse marginal 2.0 x 12mm Vision stent [facility] (06/24/2009) C arotid Doppler/Duplex: 50 - 69% stenosis of the ICA bilaterally. Vertebral flow is antegrade bilaterally. - [facility] (01/29/2011) C HOL: 170 (06/20/2009) LDL: 91 (06/20/2009) HDL: 33 (06/20/2009) T (06/20/2009) H gb: 16.8 (06/20/2009) HCT: 46.5 (06/20/2009) RBC: 5.62 (06/20/2009) WBC: 5.6 (06/20/2009) B UN: 14.1 (06/20/2009) Creat: 1.03 (06/20/2009) Glucose: 99 (06/20/2009) N a+: 141 (06/20/2009) K+: 4.4 (06/20/2009) Cl: 105 (06/20/2009) PT: 10.5 (06/20/2009) INR: 1.0 (06/20/2009) P TT: 25.8 (06/20/2009) Orders: E KG (CPT-23755) C omplete Echo (CPT-37908) S tress Test - Nuclear (28905) e Prescribe - Check this box if eRx is used (CPT-G8553) Isaac Salguero MD routine: H is updated medication list for this problem includes: Metoprolol Succinate 50 Mg Tb24 (Metoprolol succinate) ..... One tab. daily Lisinopril 40 Mg Tabs (Lisinopril) ..... One tab. daily Simvastatin 40 Mg Tabs (Simvastatin) ..... One tab. daily Aspirin 81 Mg Tabs (Aspirin) ..... One tab. daily Niaspan 1000 Mg Tbcr (Niacin (antihyperlipidemic)) ..... Two tabs. at bedtime - dispense as written Plavix 75 Mg Tabs (Clopidogrel bisulfate) ..... One tab. daily Nitrolingual 0.4 Mg/spray Soln (Nitroglycerin) ..... 1 spray as needed for chest discomfort B P today: / Prior BP: 159/83 (07/31/2010) C ardiac Cath: Normal LV systolic function and hemodynamics with EF 75%. Severe three-vessel CAD with near complete revascularization by an SHANTE and three separate vein grafts. Howeer, the only area of ischemia is the 80% first obtuse marginal because the bifurcating vein graft from the diagonal to it is 100% occluded. [facility] (06/24/2009) C ardiac Cath Comments: Successful Vision stenting of the first obtuse marginal 2.0 x 12mm Vision stent [facility] (06/24/2009) C arotid Doppler/Duplex: 50 - 69% stenosis of the ICA bilaterally. Vertebral flow is antegrade bilaterally. - [facility] (01/29/2011) C HOL: 170 (06/20/2009) LDL: 91 (06/20/2009) HDL: 33 (06/20/2009) T (06/20/2009) H gb: 16.8 (06/20/2009) HCT: 46.5 (06/20/2009) RBC: 5.62 (06/20/2009) WBC: 5.6 (06/20/2009) B UN: 14.1 (06/20/2009) Creat: 1.03 (06/20/2009) Glucose: 99 (06/20/2009) N a+: 141 (06/20/2009) K+: 4.4 (06/20/2009) Cl: 105 (06/20/2009) PT: 10.5 (06/20/2009) INR: 1.0 (06/20/2009) P TT: 25.8 (06/20/2009) Orders: C arotid Duplex Bilateral (CPT-85761) C omplete Echo (CPT-78480) S tress Test - Nuclear (49047) e Prescribe - Check this box if eRx is used (CPT-G8553) Isaac Salguero MD routine Isaac Salguero MD routine Isaac Salguero MD routine: H is updated medication list for this problem includes: Metoprolol Succinate 50 Mg Tb24 (Metoprolol succinate) ..... One tab. daily Lisinopril 40 Mg Tabs (Lisinopril) ..... One tab. daily Simvastatin 40 Mg Tabs (Simvastatin) ..... One tab. daily Aspirin 325 Mg Tabs (Aspirin) ..... One tab. daily Niaspan 1000 Mg Tbcr (Niacin (antihyperlipidemic)) ..... Two tabs. at bedtime - dispense as written Plavix 75 Mg Tabs (Clopidogrel bisulfate) ..... One tab. daily Nitrostat 0.4 Mg Subl (Nitroglycerin) ..... As directed BP today: / Prior BP: 134/72 (07/25/2009) C ardiac Cath: Normal LV systolic function and hemodynamics with EF 75%. Severe three-vessel CAD with near complete revascularization by an SHANTE and three separate vein grafts. Howeer, the only area of ischemia is the 80% first obtuse marginal because the bifurcating vein graft from the diagonal to it is 100% occluded. [facility] (06/24/2009) C ardiac Cath Comments: Successful Vision stenting of the first obtuse marginal 2.0 x 12mm Vision stent [facility] (06/24/2009) C arotid Doppler/Duplex: Borderline 50 - 69% stenosis of the right ICA. <50% stenosis of the left ICA. Vertebral flow is antegrade bilaterally. - GC (07/29/2010) C HOL: 170 (06/20/2009) LDL: 91 (06/20/2009) HDL: 33 (06/20/2009) T (06/20/2009) H gb: 16.8 (06/20/2009) HCT: 46.5 (06/20/2009) RBC: 5.62 (06/20/2009) WBC: 5.6 (06/20/2009) B UN: 14.1 (06/20/2009) Creat: 1.03 (06/20/2009) Glucose: 99 (06/20/2009) N a+: 141 (06/20/2009) K+: 4.4 (06/20/2009) Cl: 105 (06/20/2009) PT: 10.5 (06/20/2009) INR: 1.0 (06/20/2009) P TT: 25.8 (06/20/2009) Isaac Salguero MD routine: H is updated medication list for this problem includes: Lisinopril 40 Mg Tabs (Lisinopril) ..... One tab. daily Metformin Hcl 1000 Mg Tabs (Metformin hcl) ..... Take daily Aspirin 325 Mg Tabs (Aspirin) ..... One tab. daily Glimepiride 1 Mg Tabs (Glimepiride) ..... Take 2 in the morning and one in the evening BP today: / Prior BP: 134/72 (07/25/2009) Labs Reviewed: C reat: 1.03 (06/20/2009) Isaac Salguero MD routine: H is updated medication list for this problem includes: Metoprolol Succinate 50 Mg Tb24 (Metoprolol succinate) ..... One tab. daily Lisinopril 40 Mg Tabs (Lisinopril) ..... One tab. daily Simvastatin 40 Mg Tabs (Simvastatin) ..... One tab. daily Aspirin 325 Mg Tabs (Aspirin) ..... One tab. daily Niaspan 1000 Mg Tbcr (Niacin (antihyperlipidemic)) ..... Two tabs. at bedtime - dispense as written Plavix 75 Mg Tabs (Clopidogrel bisulfate) ..... One tab. daily Nitrostat 0.4 Mg Subl (Nitroglycerin) ..... As directed BP today: / Prior BP: 134/72 (07/25/2009) C ardiac Cath: Normal LV systolic function and hemodynamics with EF 75%. Severe three-vessel CAD with near complete revascularization by an SHANTE and three separate vein grafts. Howeer, the only area of ischemia is the 80% first obtuse marginal because the bifurcating vein graft from the diagonal to it is 100% occluded. [facility] (06/24/2009) C ardiac Cath Comments: Successful Vision stenting of the first obtuse marginal 2.0 x 12mm Vision stent [facility] (06/24/2009) C arotid Doppler/Duplex: Borderline 50 - 69% stenosis of the right ICA. <50% stenosis of the left ICA. Vertebral flow is antegrade bilaterally. - GC (07/29/2010) C HOL: 170 (06/20/2009) LDL: 91 (06/20/2009) HDL: 33 (06/20/2009) T (06/20/2009) H gb: 16.8 (06/20/2009) HCT: 46.5 (06/20/2009) RBC: 5.62 (06/20/2009) WBC: 5.6 (06/20/2009) B UN: 14.1 (06/20/2009) Creat: 1.03 (06/20/2009) Glucose: 99 (06/20/2009) N a+: 141 (06/20/2009) K+: 4.4 (06/20/2009) Cl: 105 (06/20/2009) PT: 10.5 (06/20/2009) INR: 1.0 (06/20/2009) P TT: 25.8 (06/20/2009) Isaac Salguero MD routine: O rders: C arotid Duplex Bilateral (CPT-93897) Isaac Salguero MD routine Isaac Salguero MD routine: H is updated medication list for this problem includes: Metoprolol Succinate 50 Mg Tb24 (Metoprolol succinate) ..... One tab. daily Lisinopril 40 Mg Tabs (Lisinopril) ..... One tab. daily Simvastatin 40 Mg Tabs (Simvastatin) ..... One tab. daily Aspirin 325 Mg Tabs (Aspirin) ..... One tab. daily Niaspan 1000 Mg Tbcr (Niacin (antihyperlipidemic)) ..... Two tabs. at bedtime - dispense as written Plavix 75 Mg Tabs (Clopidogrel bisulfate) ..... One tab. daily Nitrostat 0.4 Mg Subl (Nitroglycerin) ..... As directed BP today: / Prior BP: 134/72 (07/25/2009) C ardiac Cath: Normal LV systolic function and hemodynamics with EF 75%. Severe three-vessel CAD with near complete revascularization by an SHANTE and three separate vein grafts. Howeer, the only area of ischemia is the 80% first obtuse marginal because the bifurcating vein graft from the diagonal to it is 100% occluded. [facility] (06/24/2009) C ardiac Cath Comments: Successful Vision stenting of the first obtuse marginal 2.0 x 12mm Vision stent [facility] (06/24/2009) C arotid Doppler/Duplex: Borderline 50 - 69% stenosis of the right ICA. <50% stenosis of the left ICA. Vertebral flow is antegrade bilaterally. - GC (07/29/2010) C HOL: 170 (06/20/2009) LDL: 91 (06/20/2009) HDL: 33 (06/20/2009) T (06/20/2009) H gb: 16.8 (06/20/2009) HCT: 46.5 (06/20/2009) RBC: 5.62 (06/20/2009) WBC: 5.6 (06/20/2009) B UN: 14.1 (06/20/2009) Creat: 1.03 (06/20/2009) Glucose: 99 (06/20/2009) N a+: 141 (06/20/2009) K+: 4.4 (06/20/2009) Cl: 105 (06/20/2009) PT: 10.5 (06/20/2009) INR: 1.0 (06/20/2009) P TT: 25.8 (06/20/2009) Orders: C arotid Duplex Bilateral (CPT-45718) Isaac Salguero MD routine: H is updated medication list for this problem includes: Simvastatin 40 Mg Tabs (Simvastatin) ..... One tab. daily Niaspan 1000 Mg Tbcr (Niacin (antihyperlipidemic)) ..... Two tabs. at bedtime - dispense as written BP today: / Prior BP: 134/72 (07/25/2009) C HOL: 170 (06/20/2009) LDL: 91 (06/20/2009) HDL: 33 (06/20/2009) T (06/20/2009) Orders: C arotid Duplex Bilateral (CPT-08432) Isaac Salguero MD routine: H is updated medication list for this problem includes: Simvastatin 40 Mg Tabs (Simvastatin) ..... One tab. daily Niaspan 1000 Mg Tbcr (Niacin (antihyperlipidemic)) ..... Two tabs. at bedtime - dispense as written BP today: / Prior BP: 134/72 (07/25/2009) C HOL: 170 (06/20/2009) LDL: 91 (06/20/2009) HDL: 33 (06/20/2009) T (06/20/2009) Orders: C arotid Duplex Bilateral (CPT-04297) Isaac Salguero MD routine: H is updated medication list for this problem includes: Simvastatin 40 Mg Tabs (Simvastatin) ..... One tab. daily Niaspan 1000 Mg Tbcr (Niacin (antihyperlipidemic)) ..... Two tabs. at bedtime - dispense as written BP today: / Prior BP: 134/72 (07/25/2009) C HOL: 170 (06/20/2009) LDL: 91 (06/20/2009) HDL: 33 (06/20/2009) T (06/20/2009) Orders: C arotid Duplex Bilateral (CPT-19979) Isaac Salguero MD routine: H is updated medication list for this problem includes: Metoprolol Succinate 50 Mg Tb24 (Metoprolol succinate) ..... One tab. daily Lisinopril 40 Mg Tabs (Lisinopril) ..... One tab. daily Nitrostat 0.4 Mg Subl (Nitroglycerin) ..... As directed BP today: / Prior BP: 134/72 (07/25/2009) C ardiac Cath: Normal LV systolic function and hemodynamics with EF 75%. Severe three-vessel CAD with near complete revascularization by an SHANTE and three separate vein grafts. Howeer, the only area of ischemia is the 80% first obtuse marginal because the bifurcating vein graft from the diagonal to it is 100% occluded. [facility] (06/24/2009) C ardiac Cath Comments: Successful Vision stenting of the first obtuse marginal 2.0 x 12mm Vision stent [facility] (06/24/2009) C arotid Doppler/Duplex: Borderline 50 - 69% stenosis of the right ICA. <50% stenosis of the left ICA. Vertebral flow is antegrade bilaterally. - GC (07/29/2010) C HOL: 170 (06/20/2009) LDL: 91 (06/20/2009) HDL: 33 (06/20/2009) T (06/20/2009) H gb: 16.8 (06/20/2009) HCT: 46.5 (06/20/2009) RBC: 5.62 (06/20/2009) WBC: 5.6 (06/20/2009) B UN: 14.1 (06/20/2009) Creat: 1.03 (06/20/2009) Glucose: 99 (06/20/2009) N a+: 141 (06/20/2009) K+: 4.4 (06/20/2009) Cl: 105 (06/20/2009) PT: 10.5 (06/20/2009) INR: 1.0 (06/20/2009) P TT: 25.8 (06/20/2009) Isaac Salguero MD routine post stent f/u Isaac velasquez MD routine post stent f /u: H is updated medication list for this problem includes: Simvastatin 40 Mg Tabs (Simvastatin) ..... One tab. daily Niaspan 1000 Mg Tbcr (Niacin (antihyperlipidemic)) ..... (higher dose 07/2009)two tabs. at bedtime - dispense as written Isaac Salguero MD routine post stent f /u: H is updated medication list for this problem includes: Metoprolol Succinate 50 Mg Tb24 (Metoprolol succinate) ..... One tab. daily Lisinopril 40 Mg Tabs (Lisinopril) ..... One tab. daily Simvastatin 40 Mg Tabs (Simvastatin) ..... One tab. daily Aspirin 325 Mg Tabs (Aspirin) ..... One tab. daily Niaspan 1000 Mg Tbcr (Niacin (antihyperlipidemic)) ..... (higher dose 07/2009)two tabs. at bedtime - dispense as written Effient 10 Mg Tabs (Prasugrel hcl) ..... One tablet daily Nitrostat 0.4 Mg Subl (Nitroglycerin) ..... As directed Isaac Salguero MD routine post stent f/u Isaac velasquez MD routine post stent f/u Isaac velasquez MD routine post stent f /u: H is updated medication list for this problem includes: Metoprolol Succinate 50 Mg Tb24 (Metoprolol succinate) ..... One tab. daily Lisinopril 40 Mg Tabs (Lisinopril) ..... One tab. daily Simvastatin 40 Mg Tabs (Simvastatin) ..... One tab. daily Aspirin 325 Mg Tabs (Aspirin) ..... One tab. daily Niaspan 1000 Mg Tbcr (Niacin (antihyperlipidemic)) ..... (higher dose 07/2009)two tabs. at bedtime - dispense as written Effient 10 Mg Tabs (Prasugrel hcl) ..... One tablet daily Nitrostat 0.4 Mg Subl (Nitroglycerin) ..... As directed & #13;BP today: 134/72 Prior BP: 138/94 (06/20/2009) C ardiac Cath: Normal LV systolic function and hemodynamics with EF 75%. Severe three-vessel CAD with near complete revascularization by an SHANTE and three separate vein grafts. Howeer, the only area of ischemia is the 80% first obtuse marginal because the bifurcating vein graft from the diagonal to it is 100% occluded. [facility] (06/24/2009) C ardiac Cath Comments: Successful Vision stenting of the first obtuse marginal 2.0 x 12mm Vision stent [facility] (06/24/2009) C arotid Doppler/Duplex: 50 - 69% stenosis of the right ICA. <50% stenosis of the left ICA. V ertebral flow is antegrade bilaterally. GC (06/20/2009) C HOL: 170 (06/20/2009) LDL: 91 (06/20/2009) HDL: 33 (06/20/2009) T (06/20/2009) Hgb: 16.8 (06/20/2009) HCT: 46.5 (06/20/2009) RBC: 5.62 (06/20/2009) WBC: 5.6 (06/20/2009) B UN: 14.1 (06/20/2009) Creat: 1.03 (06/20/2009) Glucose: 99 (06/20/2009) N a+: 141 (06/20/2009) K+: 4.4 (06/20/2009) Cl: 105 (06/20/2009) PT: 10.5 (06/20/2009) INR: 1.0 (06/20/2009) P TT: 25.8 (06/20/2009) Isaac Salguero MD routine post stent f /u: H is updated medication list for this problem includes: Lisinopril 40 Mg Tabs (Lisinopril) ..... One tab. daily Metformin Hcl 1000 Mg Tabs (Metformin hcl) ..... Take daily Aspirin 325 Mg Tabs (Aspirin) ..... One tab. daily Glimepiride 1 Mg Tabs (Glimepiride) ..... Take 2 in the morning and one in the evening BP today: 134/72 Prior BP: 138/94 (06/20/2009) Labs Reviewed: C reat: 1.03 (06/20/2009) Isaac Salguero MD routine post stent f /u: H is updated medication list for this problem includes: Metoprolol Succinate 50 Mg Tb24 (Metoprolol succinate) ..... One tab. daily Lisinopril 40 Mg Tabs (Lisinopril) ..... One tab. daily Simvastatin 40 Mg Tabs (Simvastatin) ..... One tab. daily Aspirin 325 Mg Tabs (Aspirin) ..... One tab. daily Niaspan 1000 Mg Tbcr (Niacin (antihyperlipidemic)) ..... (higher dose 07/2009)two tabs. at bedtime - dispense as written Effient 10 Mg Tabs (Prasugrel hcl) ..... One tablet daily Nitrostat 0.4 Mg Subl (Nitroglycerin) ..... As directed & #13;BP today: 134/72 Prior BP: 138/94 (06/20/2009) C ardiac Cath: Normal LV systolic function and hemodynamics with EF 75%. Severe three-vessel CAD with near complete revascularization by an SHANTE and three separate vein grafts. Howeer, the only area of ischemia is the 80% first obtuse marginal because the bifurcating vein graft from the diagonal to it is 100% occluded. [facility] (06/24/2009) C ardiac Cath Comments: Successful Vision stenting of the first obtuse marginal 2.0 x 12mm Vision stent [facility] (06/24/2009) C arotid Doppler/Duplex: 50 - 69% stenosis of the right ICA. <50% stenosis of the left ICA. V ertebral flow is antegrade bilaterally. GC (06/20/2009) C HOL: 170 (06/20/2009) LDL: 91 (06/20/2009) HDL: 33 (06/20/2009) T (06/20/2009) H gb: 16.8 (06/20/2009) HCT: 46.5 (06/20/2009) RBC: 5.62 (06/20/2009) WBC: 5.6 (06/20/2009) B UN: 14.1 (06/20/2009) Creat: 1.03 (06/20/2009) Glucose: 99 (06/20/2009) N a+: 141 (06/20/2009) K+: 4.4 (06/20/2009) Cl: 105 (06/20/2009) PT: 10.5 (06/20/2009) INR: 1.0 (06/20/2009) P TT: 25.8 (06/20/2009) Orders: C arotid Duplex Bilateral (CPT-11027) Isaac Salguero MD routine post stent f/u Isaac velasquez MD routine post stent f /u: H is updated medication list for this problem includes: Metoprolol Succinate 50 Mg Tb24 (Metoprolol succinate) ..... One tab. daily Lisinopril 40 Mg Tabs (Lisinopril) ..... One tab. daily Simvastatin 40 Mg Tabs (Simvastatin) ..... One tab. daily Aspirin 325 Mg Tabs (Aspirin) ..... One tab. daily Niaspan 1000 Mg Tbcr (Niacin (antihyperlipidemic)) ..... (higher dose 07/2009)two tabs. at bedtime - dispense as written Effient 10 Mg Tabs (Prasugrel hcl) ..... One tablet daily Nitrostat 0.4 Mg Subl (Nitroglycerin) ..... As directed Isaac Salguero MD routine post stent f /u: H is updated medication list for this problem includes: Simvastatin 40 Mg Tabs (Simvastatin) ..... One tab. daily Niaspan 1000 Mg Tbcr (Niacin (antihyperlipidemic)) ..... (higher dose 07/2009)two tabs. at bedtime - dispense as written Isaac Salguero MD new patient: O rders: E KG (CPT-33640) C omplete Echo (CPT-48467) X -Ray, Chest, PA & Lateral (CPT-61345) C arotid Duplex Bilateral (CPT-00569) Isaac Salguero MD new patient: H is updated medication list for this problem includes: Metoprolol Succinate 50 Mg Tb24 (Metoprolol succinate) ..... One tab. daily Lisinopril 40 Mg Tabs (Lisinopril) ..... One tab. daily Aspirin 325 Mg Tabs (Aspirin) ..... One tab. daily Norvasc 10 Mg Tabs (Amlodipine besylate) ..... One tab. daily Effient 10 Mg Tabs (Prasugrel hcl) ..... One tablet daily Orders: C arotid Duplex Bilateral (CPT-25125) Isaac Salguero MD new patient: O rders: E KG (CPT-74153) C omplete Echo (CPT-47340) X -Ray, Chest, PA & Lateral (CPT-33668) C arotid Duplex Bilateral (CPT-37862) Isaac Salguero MD new patient: O rders: E KG (CPT-21010) C omplete Echo (CPT-08881) X -Ray, Chest, PA & Lateral (CPT-12751) C arotid Duplex Bilateral (CPT-93124) Isaac Salguero MD new patient: H is updated medication list for this problem includes: Metoprolol Succinate 50 Mg Tb24 (Metoprolol succinate) ..... One tab. daily Lisinopril 40 Mg Tabs (Lisinopril) ..... One tab. daily Simvastatin 40 Mg Tabs (Simvastatin) ..... One tab. daily Aspirin 325 Mg Tabs (Aspirin) ..... One tab. daily Niaspan 500 Mg Tbcr (Niacin (antihyperlipidemic)) ..... One tab. at bedtime - dispense as written Norvasc 10 Mg Tabs (Amlodipine besylate) ..... One tab. daily Effient 10 Mg Tabs (Prasugrel hcl) ..... One tablet daily Orders: E KG (CPT-49326) C omplete Echo (CPT-26616) X -Ray, Chest, PA & Lateral (CPT-15523) C arotid Duplex Bilateral (CPT-94112) Isaac Salguero MD new patient: H is updated medication list for this problem includes: Lisinopril 40 Mg Tabs (Lisinopril) ..... One tab. daily Metformin Hcl 1000 Mg Tabs (Metformin hcl) ..... Take daily Aspirin 325 Mg Tabs (Aspirin) ..... One tab. daily Glimepiride 1 Mg Tabs (Glimepiride) ..... Take 2 in the morning and one in the evening Orders: E KG (CPT-51265) C omplete Echo (CPT-75438) X -Ray, Chest, PA & Lateral (CPT-24915) C arotid Duplex Bilateral (CPT-42474) Isaac Salguero MD new patient: H is updated medication list for this problem includes: Metoprolol Succinate 50 Mg Tb24 (Metoprolol succinate) ..... One tab. daily Lisinopril 40 Mg Tabs (Lisinopril) ..... One tab. daily Simvastatin 40 Mg Tabs (Simvastatin) ..... One tab. daily Aspirin 325 Mg Tabs (Aspirin) ..... One tab. daily Niaspan 500 Mg Tbcr (Niacin (antihyperlipidemic)) ..... One tab. at bedtime - dispense as written Norvasc 10 Mg Tabs (Amlodipine besylate) ..... One tab. daily Effient 10 Mg Tabs (Prasugrel hcl) ..... One tablet daily Orders: E KG (CPT-01514) C omplete Echo (CPT-03526) X -Ray, Chest, PA & Lateral (CPT-16202) C arotid Duplex Bilateral (CPT-34552) Isaac Salguero MD new patient: O rders: E KG (CPT-18181) C omplete Echo (CPT-94007) X -Ray, Chest, PA & Lateral (CPT-90784) C arotid Duplex Bilateral (CPT-48215) Isaac Salguero MD new patient: O rders: E KG (CPT-78464) C omplete Echo (CPT-16290) X -Ray, Chest, PA & Lateral (CPT-28117) C arotid Duplex Bilateral (CPT-61500) Isaac Salguero MD Date Name STR - Nuclear Arterial - SENSILASE Stress Test - Nuclea r Complete Echo Carotid Duplex Bilat eral Carotid Duplex Bilat eral Carotid Duplex Bilat eral CBC (H/H, RBC, INDIC ES, WBC, PLT) PARTIAL THROMBOPLAST IN TIME, ACTIVATED PROTHROMBIN TIME WIT H INR COMPREHENSIVE METABO LIC PANEL W/EGFR Cardiac Cath - PCL Carotid Duplex Bilat eral X-Ray, Chest, PA & L ateral Complete Echo HISTORY OF PROCEDURES Procedure Date Procedure Name Provider Procedure Notes S tatus EKG Isaac Salguero MD complete d EKG Isaac Salguero MD complete d ePrescribe - Check t his box if eRx is used Isaac Salguero MD completed EKG Isaac Salguero MD complete d ePrescribe - Check t his box if eRx is used Isaac Salguero MD completed ASHLEY Salguero MD complete d ePrescribe - Check t his box if eRx is used Isaac Salguero MD completed ASHLEY Salguero MD complete d ASHLEY Salguero MD complete d
--- OUTSIDE RECORDS SUMMARY | 2024-05-10 13:33 | XMS_ITS | Referral Summary ---
Author Organization [address] Address [address] [facility] [address] [place] [address] Care Team Providers Care Principal Systems Engineer Name Role Phone Rommel Soto MD Primary Care Provider Encounters Date Type Department Care Team Description 04/27/2024 Orders Only [facility] Cardiology [address] [place] [address] [address] [place] [phone] ProviderGrace MD 04/27/2024 8:00 AM CDT Office Visit [facility] [address] [place] [address] [address] [place] [address] Alec Carrion MD Coronary artery disease involving [place] coronary artery of [place] heart without angina pectoris (Primary Dx); Carotid stenosis, bilateral; Mixed 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 ([facility]/HCC) (HCC); History of coronary artery bypass surgery; Hypertension associated with diabetes ([facility]) 02/17/2024 Telephone [facility] Cardiology [address] [facility] [address] [place] [address] Alec Carrion MD from Last 3 Months Allergies No known active allergies Medications metFORMIN [...] a associated with type 2 diabetes mellitus ([facility]/HCC) 07/09/2015 Overview (05/22/2016): DM type 2 with diabetic dyslipidemia Hypertension associated with diabetes 12/11/2014 Overview (05/21/2016): HTN (hypertension), benign Simple obesity 12/11/2014 Overview (05/21/2016): Obesity due to excess calories, unspecified obesity severity Coronary artery disease invo lving [place] coronary artery of [place] heart without angina pectoris 12/11/2014 Overview (05/21/2016): Coronary artery disease involving [place] coronary artery of [place] heart without angina pectoris History of coronary artery bypass surgery 2014 Overview (05/21/2016): S/P CABG (coronary artery bypass graft) Peripheral arterial occlusive disease 12/11/2014 Overview (05/21/2016): PAD (peripheral artery disease) Resolved Problems Problem Noted Date Diagnosed Date Resolved Date Carotid artery disease ([facility]/HCC) 12/30/2015 03/25/2021 Overview (05/21/2016): Bilateral carotid artery disease Dyslipidemia 12/11/2014 03/25/2021 Overview (05/21/2016): Mixed dyslipidemia Social History Tobacco Use Types Packs/Day Years Used Date Smoking Tobacco: Never Smokeless Tobacco: Never Tobacco Cessation:Counseling Given: Not Answered Alcohol Use Standard Drinks/Week Comments Yes 0 (1 standard drink = 0.6 oz pur e alcohol) Sex and Gender Information Value Date Recorded Sex Assigned at Not on file Legal Sex Male 9:11 AM PIECE PRESSER Gender Identity Male 01/02/2020 4:19 PM PIECE PRESSER Sexual Orientation Straight 01/02/2020 4: 19 PM PIECE PRESSER Last Filed Vital Signs Vital Sign Reading Time Taken Comments Blood Pressure 160/80 04/27/2024 7:47 AM CDT Pulse 81 04/27/2024 7:47 AM CDT Temperature - - Respiratory Rate 12 12/25/2016 2:19 PM PIECE PRESSER Oxygen Saturation 97% 04/27/2024 7:47 AM CDT Inhaled Oxygen Concentration - - Weight 83.3 kg (183 lb 11.2 oz) 04/27/2024 7:47 AM CDT Height 182.9 cm (6') 04/27/2024 7:47 AM CDT Body Mass Index 24.91 04/27/2024 7:47 AM CDT Plan of Treatment Not on file Procedures Procedure Name Priority Date/Time Associated Diagnosis Comments POCT LIPID PANEL Routine 04/27/2024 8:38 AM CDT Carotid stenosis, bilateral LIPID PANEL Routine 04/21/2024 10:39 AM PIECE PRESSER SCAN - LABS Routine 04/21/2024 8:23 AM PIECE PRESSER from Last 3 Months Results * POCT lipid panel (04/27/2024 8:38 AM CDT) Cholesterol, POC 106 mg/dL Comment:GLU = 196 HDL, POC 29 mg/dL Triglycerides, POC 457 mg/dL LDL Cholesterol POC N/A mg/dL Chol/HDL Ratio, POC N/A Non-HDL Cholesterol, POC 76 mg/dL Cholesterol Total, POC 106 mg/dL Capillary blood 04/27/2024 8 :38 AM CDT [facility] Carrion MD POINT OF CARE TEST ORDE RABLES Final Result * Lipid panel (04/21/2024 10:39 AM PIECE PRESSER) SCRIBED Cholesterol, Total 127 <200 [facility] S[facility] HDL 41 >39 [facility] LDL 63 <130 [facility] Triglycerides 142 <150 [facility] Blood Historical Provider LAB BLOOD ORDERABLES Edit ed Result - Final [facility] * SCAN - LABS (04/21/2024 8:23 AM PIECE PRESSER) Historical Provider Final Res ult from Last 3 Months Insurance MEDICARE MEDICARE [facility] Care Teams Principal Systems Engineer Relationship Specialty Start Date End Date Rommel Soto MD PCP - General 05/15/16
== END 2024-05-10 12:28 | disposition home or self-care (01) ==
PROVIDERS: PCP Internal Medicine; Visit Provider Internal Medicine
DX: I65.23 Occlusion and stenosis of bilateral carotid arteries (principal)
CPT/HCPCS: 93880

== ENCOUNTER 2024-07-05 00:27 | Day surgery (SDC) | payer MEDICARE, SELFPAY ==
[2024-06-28 15:55] VITALS: BMI 24.1
--- OUTSIDE RECORDS SUMMARY | 2024-07-05 00:30 | XMS_ITS | Data Portability ---
Author Organization [facility], Main Office Address [address] [place] [address] Care Team Providers Care Tower Control Operator Name Role Phone NEREIDA SOTO Primary Care Provider [phone] Assessment No assessment recorded. Plan of Treatment Reminders Order Date Submit Date Provider Last Modified By Organization Details Last Modified Time Details Appointments None recorded . Lab PSA, serum or plasma 025 04/21/19 25 [facility], [address], [address], 5 14:22:46 HbA1c (hemoglo bin A1c), blood 025 04/21/19 25 [facility], [address], [address], 5 14:22:48 lipid panel, serum 025 04/21/19 25 [facility], [address], [address], 5 14:22:39 CMP, serum or plasma 025 04/21/19 25 [facility], [address], [address], 5 14:22:41 TSH, serum or plasma 025 04/21/19 25 [facility], [address], [address], 5 14:22:45 T4, free, serum 025 04/21/19 25 [facility], [facility] [address], [address], 5 14:22:44 CBC w/ auto diff 025 04/21/19 25 [facility], [facility] [address], [address], 5 14:22:42 HbA1c (hemoglo bin A1c), blood 024 10/21/19 24 [facility], [address] [place] [address], [address], 4 01:51:33 lipid panel, serum 024 10/21/19 24 [facility], [address] [place] [address], [address], 4 01:51:32 CMP, serum or plasma 024 10/21/19 24 [facility], [address] [place] [address], [address], 4 01:51:32 CBC w/ auto diff 024 10/21/19 24 [facility], [address] [place] [address], [address], 4 01:51:33 HbA1c (hemoglo bin A1c), blood 024 04/23/19 24 [facility], [address] [place] [address], [address], 4 14:19:31 microalb umin/cre atinine, mass ratio, urine 024 04/23/19 24 [facility], [address] [place] [address], [address], 4 14:19:25 lipid panel, serum 024 04/23/19 24 [employer] [facility], [address] [facility] [address], [place], [address], 4 14:19:24 CMP, serum or plasma 024 04/23/19 24 [employer] [facility], [address] [facility] [address], [place], [address], 4 14:19:26 T4, free, serum 024 04/23/19 24 [employer] [facility], [address] [address], [place], [address], 4 14:19:29 TSH, serum or plasma 024 04/23/19 24 [facility], [address] [facility] [address], [place], [address], 4 14:19:30 CBC w/ auto diff 024 04/23/19 24 [facility], [address] [facility] [address], [place], [address], 4 14:19:28 HbA1c (hemoglo bin A1c), blood 023 10/24/19 23 [facility], [address] [facility] [address], [place], [address], 3 13:37:00 microalb umin/cre atinine, mass ratio, urine 023 10/24/19 23 [facility], [address] [facility] [address], [place], [address], 3 13:36:57 PSA, serum or plasma 09/09/1610/24/19 23 [facility], [address], [place], [address], 3 13:36:59 lipid panel, serum 023 10/24/19 23 [facility], [address], [place], [address], 3 13:36:56 CMP, serum or plasma 10/24/19 23 [facility], [address], [place], [address], 3 13:36:58 HbA1c (hemoglo bin A1c), blood 023 04/18/19 [facility], [address] [facility] [address], [place], [address], 3 13:41:40 microalb umin/cre atinine, mass ratio, urine 023 04/18/19 [facility], [address], [place], [address], 3 13:41:37 CMP, serum or plasma 023 04/18/19 [facility], [address] [facility] [address], [place], [address], 3 13:41:38 lipid panel, serum 023 04/18/19 23 [facility], [address] [facility] [address], [place], [address], 3 13:41:36 CBC w/ auto diff 023 04/18/19 [facility], [address] [facility] [address], [place], [address], 3 13:41:39 Referral None recorded . Procedures None recorded . Surgeries None recorded . Imaging None recorded . Medication Orders None recorded . Patient TargetsNo targets recorded. Patient Instructions Encounter Date Encounter Id Patient Instructions Last Modified By Organization Details Last Modified Time 04/17/2022 [id number] Follow-up krishnamurthy ry artery disease -hypertension-carot id stenosis -hyperlipidemia all clinically stable. Will check blood work in the form of CBC, CMP, lipid, thyroid, hemoglobin A1c and microalbumin. Continue on current Rx follow-up in six months [email or web address] Not available 04/17/2022 12:04:45 10/23/2022 [id number] Follow-up krishnamurthy ry artery disease -carotid artery stenosis -hypertension -hyperlipidemia - type 2 diabetes all clinically stable. Last hemoglobin A1c 6.8. Cholesterol 103 HDL 31 LDL of 51. Overall is doing well. Will check blood work consisting of CMP, lipid, hemoglobin A1c, microalbumin , PSA. Is going to be due for a had ultrasound in the near future. Otherwise is doing well. Follow-up in six months Portions of the record may have been created with voice recognition software. Occasional wrong-word or smhvn-[id number] substitutions may have occurred due to the inherent limitations of voice recognition software. Read the chart carefully and recognize, using context, where substitutions have occurred. Next Appt: 6 Months Approximate Date: 04/21/2023 Not available 10/23/2022 10:58:22 04/23/2023 [id number] Coronary artery disease, hypertension, hyperlipidemia type 2 diabetes all clinically stable doing well. Continue on current medications check blood work consisting of CBC, CMP, lipid, thyroid, hemoglobin A1c and microalbumin. Continue and follow up in six months. FDA recommendations of a influenza, RSV, COVID, pneumococcal immunizations strongly advised. Portions of the record may have been created with voice recognition software. Occasional wrong-word or [id number] substitutions may have occurred due to the inherent limitations of voice recognition software. Read the chart carefully and recognize, using context, where substitutions have occurred. Not available 04/23/2023 11:34:15 10/21/2023 [id number] Follow-up for coronary artery disease, essential hypertension, hyperlipidemia type 2 diabetes all clinically stable. Will continue on current medications. Check blood work consisting of CBC, CMP, lipid and hemoglobin A1c level. Also needs to be set up for colonoscopy follow-up in six months. Additional Orders - Directives - Recommendations 1. Colonoscopy Next Appointment: 6 Months Approximate Date: 04/18/2024 Portions of the record may have been created with voice recognition software. Occasional wrong-word or areci-g-urzi substitutions may have occurred due to the inherent limitations of voice recognition software. Read the chart carefully and recognize, using context, where substitutions have occurred. Not available 10/21/2023 11:37:26 04/20/2024 [id number] Follow-up krishnamurthy ry artery disease, essential hypertension, hyperlipidemia, type 2 diabetes and carotid artery stenosis on the right. Clinically stable no associated neurological symptomatology. Will continue on current medication. Will give her Prevnar 20 shot. Check blood work in the form of CBC, CMP, lipid, thyroid, PSA. Also needs the hemoglobin A1c and microalbumin. Follow-up in six months Additional Orders - Directives - Recommendations 1. Colonoscopy already scheduled for June 2. carotid ultrasound done up at [facility] for history of carotid stenosis Follow Up: 6 Months Approximate Date: 10/17/2024 Portions of record are template driven. When necessary additional context will be provided. Additionally some portions have been created with voice recognition software. Occasional wrong-word or [id number]-u-[id number] substitutions may have occurred due to the inherent limitations of voice recognition software. Read the chart carefully and recognize, using context, where substitutions may have occurred. Created: Nereida Soto M.D. 04.20.2024 10:37 AM [email or web address] Not available 04/20/2024 11:37:28 Reason for Referral None Reported. Results Created Date Observation Date Name Description Value Unit Range Abnormal Flag Note LastModifiedBy Organization Detail LastModifiedTime 04/23/1904/23/2022 LIPID PANEL , STAND JAQUELINE cholesterol, total 108 mg/dL <200 normal Not Available [employer] [facility] [address] [place], [address], 04/23/2022 13:41:36 04/23/19 23 04/23/2022 LIPID PANEL , STAND JAQUELINE HDL cholesterol 31 mg/dL > or = 40 low Not Available [employer] [facility] [address] [address] [place], [address], 04/23/2022 13:41:36 04/23/19 23 04/23/2022 LIPID PANEL , STAND JAQUELINE triglyceride s 190 mg/dL <150 high Not Available [facility] [address] [place], [address], 04/23/2022 13:41:36 04/23/19 23 04/23/2022 LIPID PANEL , STAND JAQUELINE LDL-choleste rol 51 mg/dL _(cipriano c) normal Refer ence range : <100 Carissa able range <100 mg/dL for prima ry preve ntion ; <70 mg/dL for patie nts with CHD or diabe tic patie nts with > or = 2 CHD risk facto rs. LDL-C is now calcu lated using the Cherelle n-Hop kins calcu latsanna n, which is a valid ated novel metho d provi ding toya r accur acy than the Fried clair equat ion in the estim ation of LDL-C . Cherelle ponce SS et al. NICKI. 2013; 310(1 9): 2061- 2068 (http ://ed ucati on.Qu estDi woohoo mobile marketing. com/f aq/FA Q164) Not Available [facility] [address] [place], [address], 04/23/2022 13:41:36 04/23/19 23 04/23/2022 LIPID PANEL , STAND JAQUELINE chol/HDLC ratio 3.5 (calc ) <5.0 normal Not Available [facility] [id number] [place] [address], [address], 04/23/2022 13:41:36 04/23/19 23 04/23/2022 LIPID PANEL , STAND JAQUELINE non HDL cholesterol 77 mg/dL _(cipriano c) <130 normal For patie nts with diabe juan plus 1 major ASCVD risk facto r, treat ing to a non-H DL-C goal of <100 mg/dL (LDL- C of <70 mg/dL ) is consi dered a thera peuti c optio n. Not Available [facility] [address] [place] [address], [address], 04/23/2022 13:41:36 04/23/19 23 04/23/2022 ALBUM IN, RANDO M URINE W/CRE ATINI NE creatinine, random urine 53 mg/dL 20-320 normal Not Available [facility] [address] , [place], [address], 04/23/2022 13:41:37 04/23/19 23 04/23/2022 ALBUM IN, RANDO M URINE W/CRE ATINI NE albumin, urine 0.2 mg/dL see note: normal Refer ence Range : Refer ence Range Not estab lishe d Not Available [address] [address] [facility] [place], [address], 04/23/2022 13:41:37 04/23/19 23 04/23/2022 ALBUM IN, RANDO M URINE W/CRE ATINI NE albumin/crea tinine ratio, random urine 4 mcg/m g_cre at <30 normal The ADA defin es abnor malit ies in album in excre tion as follo ws: Album inuri a Categ ory Resul t (mcg/ mg creat inine ) Yanely l to Mildl y incre ased <30 Moder ately incre ased 30-29 9 Sever christelle incre ased > OR = 300 The ADA recom mends that at least two of three speci mens colle cted withi n a 3-6 month perio d be abnor mal befor e consi geeta g a patie nt to be withi n a diagn ostic categ ory. Not Available [facility] [id number] [place] [address], [address], 04/23/2022 13:41:37 04/23/1904/23/2022 COMPR EHENS ALYSON METAB OLIC PANEL glucose 153 mg/dL 65-99 high Fasti ng refer ence inter nayeli For someo ne witho ut known diabe juan, a gluco se value >125 mg/dL indic ates that they may have diabe juan and this shoul d be confi rmed with a follo w-up test. Not Available [facility] [address] [address] [place], [address], 04/23/2022 13:41:38 04/23/19 23 04/23/2022 COMPR EHENS ALYSON METAB OLIC PANEL urea nitrogen (BUN) 13 mg/dL 7-25 normal Not Available [facility] [address] [address] [place], [address], 04/23/2022 13:41:38 04/23/19 23 04/23/2022 COMPR EHENS ALYSON METAB OLIC PANEL creatinine 0.96 mg/dL 0.70-1 .28 normal Not Available [facility] [address] [address] [place], [address], 04/23/2022 13:41:38 04/23/19 23 04/23/2022 COMPR EHENS ALYSON METAB OLIC PANEL eGFR 83 mL/mi n/1.7 3m2 > or = 60 normal The eGFR is based on the CKD-E PI 2020 equat ion. To calcu late the new eGFR from a previ ous Creat inine or Cysta tin C resul t, go to https ://gabrielle montez/jerman johnson/ kdoqi /gfr% 5Fcal culat or Not Available [address] [address] [place], [address], 04/23/2022 13:41:38 04/23/19 23 04/23/2022 COMPR EHENS ALYSON METAB OLIC PANEL BUN/creatini ne ratio NOT APPLIC ABLE (calc ) 6-22 Not Available [facility] [address] [address] [place], [address], 04/23/2022 13:41:38 04/23/19 23 04/23/2022 COMPR EHENS ALYSON METAB OLIC PANEL sodium 139 mmol/ L 135-14 6 normal Not Available [facility] [address] [address] [place], [address], 04/23/2022 13:41:38 04/23/19 23 04/23/2022 COMPR EHENS ALYSON METAB OLIC PANEL potassium 4.9 mmol/ L 3.5-5. 3 normal Not Available [address], [address], 04/23/2022 13:41:38 04/23/19 23 04/23/2022 COMPR EHENS ALYSON METAB OLIC PANEL chloride 102 mmol/ L 98-110 normal Not Available [address], [address], 04/23/2022 13:41:38 04/23/19 23 04/23/2022 COMPR EHENS ALYSON METAB OLIC PANEL carbon dioxide 25 mmol/ L 20-32 normal Not Available [address], [address], 04/23/2022 13:41:38 04/23/19 23 04/23/2022 COMPR EHENS ALYSON METAB OLIC PANEL calcium 9.9 mg/dL 8.6-10 .3 normal Not Available [address], [address], 04/23/2022 13:41:38 04/23/19 23 04/23/2022 COMPR EHENS ALYSON METAB OLIC PANEL protein, total 6.9 g/dL 6.1-8. 1 normal Not Available [address], [address], 04/23/2022 13:41:38 04/23/19 23 04/23/2022 COMPR EHENS ALYSON METAB OLIC PANEL albumin 4.8 g/dL 3.6-5. 1 normal Not Available [address], [address], 04/23/2022 13:41:38 04/23/19 23 04/23/2022 COMPR EHENS ALYSON METAB OLIC PANEL globulin 2.1 g/dL_ (calc ) 1.9-3. 7 normal Not Available [address], [address], 04/23/2022 13:41:38 04/23/19 23 04/23/2022 COMPR EHENS ALYSON METAB OLIC PANEL albumin/glob ulin ratio 2.3 (calc ) 1.0-2. 5 normal Not Available [address], [address], 04/23/2022 13:41:38 04/23/19 23 04/23/2022 COMPR EHENS ALYSON METAB OLIC PANEL bilirubin, total 0.8 mg/dL 0.2-1. 2 normal Not Available [address], [address], 04/23/2022 13:41:38 04/23/19 23 04/23/2022 COMPR EHENS ALYSON METAB OLIC PANEL alkaline phosphatase 72 U/L 35-144 normal Not Available [address], [address], 04/23/2022 13:41:38 04/23/19 23 04/23/2022 COMPR EHENS ALYSON METAB OLIC PANEL AST 20 U/L 10-35 normal Not Available [address], [address], 04/23/2022 13:41:38 04/23/19 23 04/23/2022 COMPR EHENS ALYSON METAB OLIC PANEL ALT 20 U/L 9-46 normal Not Available [address], [address], 04/23/2022 13:41:38 04/23/19 23 04/23/2022 CBC (INCL UDES DIFF/ PLT) white blood cell count 5.8 thous and/u L 3.8-10 .8 normal Not Available [address], [address], 04/23/2022 13:41:39 04/23/19 23 04/23/2022 CBC (INCL UDES DIFF/ PLT) red blood cell count 5.61 kenton on/uL 4.20-5 .80 normal Not Available [address], [address], 04/23/2022 13:41:39 04/23/19 23 04/23/2022 CBC (INCL UDES DIFF/ PLT) hemoglobin 16.5 g/dL 13.2-1 7.1 normal Not Available [address], [address], 04/23/2022 13:41:39 04/23/19 23 04/23/2022 CBC (INCL UDES DIFF/ PLT) hematocrit 46.9 % 38.5-5 0.0 normal Not Available [address], [address], 04/23/2022 13:41:39 04/23/19 23 04/23/2022 CBC (INCL UDES DIFF/ PLT) MCV 83.6 fL 80.0-1 00.0 normal Not Available [address], [address], 04/23/2022 13:41:39 04/23/19 23 04/23/2022 CBC (INCL UDES DIFF/ PLT) MCH 29.4 pg 27.0-3 3.0 normal Not Available [address], [address], 04/23/2022 13:41:39 04/23/19 23 04/23/2022 CBC (INCL UDES DIFF/ PLT) MCHC 35.2 g/dL 32.0-3 6.0 normal Not Available [address], [address], 04/23/2022 13:41:39 03/08/04/23/2022 CBC (INCL UDES DIFF/ PLT) RDW 12.4 % 11.0-1 5.0 normal Not Available [address], [address], 04/23/2022 13:41:39 04/23/19 23 04/23/2022 CBC (INCL UDES DIFF/ PLT) platelet count 219 thous and/u L 140-40 0 normal Not Available [address], [address], 04/23/2022 13:41:39 04/23/19 23 04/23/2022 CBC (INCL UDES DIFF/ PLT) MPV 9.7 fL 7.5-12 .5 normal Not Available [address], [address], 04/23/2022 13:41:39 04/23/19 23 04/23/2022 CBC (INCL UDES DIFF/ PLT) absolute neutrophils 3074 cells /uL 1500-7 800 normal Not Available [address], [address], 04/23/2022 13:41:39 04/23/19 23 04/23/2022 CBC (INCL UDES DIFF/ PLT) absolute lymphocytes 1786 cells /uL 850-39 00 normal Not Available [address], [address], 04/23/2022 13:41:39 04/23/19 23 04/23/2022 CBC (INCL UDES DIFF/ PLT) absolute monocytes 667 cells /uL 200-95 0 normal Not Available [address], [address], 04/23/2022 13:41:39 04/23/19 23 04/23/2022 CBC (INCL UDES DIFF/ PLT) absolute eosinophils 220 cells /uL 15-500 normal Not Available [address], [address], 04/23/2022 13:41:39 04/23/19 23 04/23/2022 CBC (INCL UDES DIFF/ PLT) absolute basophils 52 cells /uL 0-200 normal Not Available [address], [address], 04/23/2022 13:41:39 04/23/19 23 04/23/2022 CBC (INCL UDES DIFF/ PLT) neutrophils 53 % normal Not Available [facility] [address], [address], 04/23/2022 13:41:39 04/23/19 23 04/23/2022 CBC (INCL UDES DIFF/ PLT) lymphocytes 30.8 % normal Not Available [facility] [address], [address], 04/23/2022 13:41:39 04/23/19 23 04/23/2022 CBC (INCL UDES DIFF/ PLT) monocytes 11.5 % normal Not Available [facility] [address], [address], 04/23/2022 13:41:39 04/23/19 23 04/23/2022 CBC (INCL UDES DIFF/ PLT) eosinophils 3.8 % normal Not Available [facility] [address], [address], 04/23/2022 13:41:39 04/23/19 23 04/23/2022 CBC (INCL UDES DIFF/ PLT) basophils 0.9 % normal Not Available [facility] [address], [address], 04/23/2022 13:41:39 04/23/19 23 04/23/2022 HEMOG LOBIN A1C hemoglobin A1C 6.8 %_of_ total _HGB <5.7 high For someo ne witho ut known diabe juan, a hemog lobin A1c value of 6.5% or great er indic ates that they may have diabe juan and this shoul d be confi rmed with a follo w-up test. For someo ne with known diabe juan, a value <7% indic ates that their diabe juan is well contr olled and a value great er than or equal to 7% indic ates subop timal contr ol. A1c targe ts shoul d be indiv idual ized based on durat ion of diabe juan, age, comor bid condi tions , and other consi derat ions. Curre ntly, no conse nsus exist s juju mead use of hemog lobin A1c for diagn osis of diabe juan for child anthony. Not Available [facility] [address], [address], 04/23/2022 13:41:40 11/03/19 23 11/03/2022 LIPID PANEL , STAND JAQUELINE cholesterol, total 102 mg/dL <200 normal Not Available [facility] [address], [address], 11/03/2022 13:36:55 11/03/19 23 11/03/2022 LIPID PANEL , STAND JAQUELINE HDL cholesterol 37 mg/dL > or = 40 low Not Available [facility] [address], [address], 11/03/2022 13:36:55 11/03/19 23 11/03/2022 LIPID PANEL , STAND JAQUELINE triglyceride s 88 mg/dL <150 normal Not Available [facility] [address], [address], 11/03/2022 13:36:55 11/03/19 23 11/03/2022 LIPID PANEL , STAND JAQUELINE LDL-choleste rol 48 mg/dL _(cipriano c) normal Refer ence range : <100 Carissa able range <100 mg/dL for prima ry preve ntion ; <70 mg/dL for patie nts with CHD or diabe tic patie nts with > or = 2 CHD risk facto rs. LDL-C is now calcu lated using the Cherelle n-Hop kuldeep murillo n, which is a valid ated novel metho d provi [place] pittman r accur acy than the Fried clair equat ion in the estim ation of LDL-C . Cherelle ponce SS et al. NICKI. 2013; 310(1 9): 2061- 2068 (http ://ed ucati on.Qu estDi Quenchs. com/f aq/FA Q164) Not Available [address], [address], 11/03/2022 13:36:55 11/03/19 23 11/03/2022 LIPID PANEL , STAND JAQUELINE chol/HDLC ratio 2.8 (calc ) <5.0 normal Not Available [address], [address], 11/03/2022 13:36:55 11/03/1911/03/2022 LIPID PANEL , STAND JAQUELINE non HDL cholesterol 65 mg/dL _(cipriano c) <130 normal For patie nts with diabe juan plus 1 major ASCVD risk facto r, treat ing to a non-H DL-C goal of <100 mg/dL (LDL- C of <70 mg/dL ) is whitney nance optio n. Not Available [address] [address] [place], [address], 11/03/2022 13:36:55 11/03/1911/03/2022 ALBUM IN, RANDO M URINE W/CRE ATINI NE creatinine, random urine 53 mg/dL 20-320 normal Not Available [address] [address] [place], [address], 11/03/2022 13:36:57 11/03/1911/03/2022 ALBUM IN, RANDO M URINE W/CRE ATINI NE albumin, urine 0.3 mg/dL see note: normal Refer ence Range : Refer ence Range Not estab lishe d Not Available [address] [place], [address], 11/03/2022 13:36:57 11/03/19 23 11/03/2022 ALBUM IN, RANDO M URINE W/CRE ATINI NE albumin/crea tinine ratio, random urine 6 mcg/m g_cre at <30 normal The ADA defin es abnor malit ies in album in excre tion as follo ws: Album inuri a Categ ory Resul t (mcg/ mg creat inine ) Yanely l to Mildl y incre ased <30 Moder ately incre ased 30-29 9 Sever christelle incre ased > OR = 300 The ADA recom mends that at least two of three speci mens colle cted withi n a 3-6 month perio d be abnor mal befor e consi geeta g a patie nt to be withi n a diagn ostic categ ory. Not Available [address], [address], 11/03/2022 13:36:57 11/03/19 23 11/03/2022 COMPR EHENS ALYSON METAB OLIC PANEL glucose 126 mg/dL 65-99 high Fasti ng refer ence inter nayeli For someo ne witho ut known diabe juan, a gluco se value >125 mg/dL indic ates that they may have diabe juan and this shoul d be confi rmed with a follo w-up test. Not Available [address], [address], 11/03/2022 13:36:58 11/03/19 23 11/03/2022 COMPR EHENS ALYSON METAB OLIC PANEL urea nitrogen (BUN) 13 mg/dL 7-25 normal Not Available [address], [address], 11/03/2022 13:36:58 11/03/19 23 11/03/2022 COMPR EHENS ALYSON METAB OLIC PANEL creatinine 0.96 mg/dL 0.70-1 .28 normal Not Available [address], [place], [address], 11/03/2022 13:36:58 11/03/19 23 11/03/2022 COMPR EHENS ALYSON METAB OLIC PANEL eGFR 83 mL/mi n/1.7 3m2 > or = 60 normal Not Available [address], [address], 11/03/2022 13:36:58 11/03/19 23 11/03/2022 COMPR EHENS ALYSON METAB OLIC PANEL BUN/creatini ne ratio SEE NOTE: (calc ) 6-22 Not Repor isai: BUN and Creat inine are withi n refer ence range . Not Available [address], [address], 11/03/2022 13:36:58 11/03/19 23 11/03/2022 COMPR EHENS ALYSON METAB OLIC PANEL sodium 140 mmol/ L 135-14 6 normal Not Available [address] [address] [place], [address], 11/03/2022 13:36:58 11/03/19 23 11/03/2022 COMPR EHENS ALYSON METAB OLIC PANEL potassium 4.7 mmol/ L 3.5-5. 3 normal Not Available [address], [address], 11/03/2022 13:36:58 11/03/19 23 11/03/2022 COMPR EHENS ALYSON METAB OLIC PANEL chloride 103 mmol/ L 98-110 normal Not Available [address] [address] [place], [address], 11/03/2022 13:36:58 11/03/19 23 11/03/2022 COMPR EHENS ALYSON METAB OLIC PANEL carbon dioxide 28 mmol/ L 20-32 normal Not Available [address], [address], 11/03/2022 13:36:58 11/03/19 23 11/03/2022 COMPR EHENS ALYSON METAB OLIC PANEL calcium 10.1 mg/dL 8.6-10 .3 normal Not Available [address], [address], 11/03/2022 13:36:58 11/03/19 23 11/03/2022 COMPR EHENS ALYSON METAB OLIC PANEL protein, total 7.1 g/dL 6.1-8. 1 normal Not Available [address], [address], 11/03/2022 13:36:58 11/03/1911/03/2022 COMPR EHENS ALYSON METAB OLIC PANEL albumin 4.7 g/dL 3.6-5. 1 normal Not Available [address], [address], 11/03/2022 13:36:58 11/03/19 23 11/03/2022 COMPR EHENS [facility] METAB OLIC PANEL globulin 2.4 g/dL_ (calc ) 1.9-3. 7 normal Not Available [address], [address], 11/03/2022 13:36:58 11/03/19 23 11/03/2022 COMPR EHENS ALYSON METAB OLIC PANEL albumin/glob ulin ratio 2.0 (calc ) 1.0-2. 5 normal Not Available [address], [address], 11/03/2022 13:36:58 11/03/19 23 11/03/2022 COMPR EHENS ALYSON METAB OLIC PANEL bilirubin, total 0.6 mg/dL 0.2-1. 2 normal Not Available [address], [address], 11/03/2022 13:36:58 11/03/19 23 11/03/2022 COMPR EHENS ALYSON METAB OLIC PANEL alkaline phosphatase 67 U/L 35-144 normal Not Available [facility] - [id number]|2024-07-05 11:06:39|2024-07-05 11:06:39|WPDANESEPPF||||"Anes - Initial Pre Proc Eval Procedure: Operation Date: 07/05/24 10:30 Proposed Procedures p Screening Colonoscopy - Marvin Quintero MD Date/Time: 07/05/24 11:06 Surgeon: Marvin Quintero MD Pre Op Diagnosis: personal hx of colon polyps Patient Data Age: 73 Gender: M Height: 1.83 m Weight: 81.6 kg Last Vital Signs Temp 36.4 C 07/05/24 09:55 Pulse 73 07/05/24 09:55 Resp 16 07/05/24 09:55 BP 140/68 07/05/24 09:55 Pulse Ox 100 07/05/24 09:55 O2 Del Method Room Air 07/05/24 09:55 Allergies Allergy/AdvReac Type Severity Reaction Status Date / Time No Known Allergies Allergy Verified 07/05/24 10:02 Home Medications Medication Instructions Recorded Confirmed Type aspirin 81 mg tablet,delayed 81 mg PO DAILY 06/28/24 07/05/24 History release (Adult Aspirin Regimen) dapagliflozin propanediol 5 mg 5 mg PO DAILY 06/28/24 07/05/24 History tablet (Farxiga) glimepiride 2 mg tablet 2 mg PO DAILY 06/28/24 07/05/24 History lisinopril 40 mg tablet 40 mg PO DAILY 06/28/24 07/05/24 History metformin 1,000 mg tablet 1,000 mg PO BID 06/28/24 07/05/24 History metoprolol succinate 50 mg 50 mg PO DAILY 06/28/24 07/05/24 History tablet,extended release 24 hr multivitamin (Daily Multi-Vitamin 1 tablet PO DAILY 06/28/24 07/05/24 History tablet) rosuvastatin 20 mg tablet 20 mg PO DAILY 06/28/24 07/05/24 History Laboratory Tests 07/05/24 10:14 POC Capillary Glucose 84 mg/dl (65-105) Patient hx anesthesia problems: none Family hx anesthesia problems: none Results Review: All pre-operative results and documents have been reviewed as part of the pre-operative evaluation. [facility] Social History Social History Smoking status: Never smoker Alcohol intake: never Substance use: never Substance use type: does not use Living arrangements: with family Spiritual care concerns: No Anes - Eval Final PreProcedure Day of Procedure 07/05/24 11:06 Patient weight: normal Heart: regular rate and rhythm Lungs: clear to auscultation Airway: Mallampati scale class II Neurological: alert and oriented Last oral intake: >/= 8 hours ASA classification: III Emergent: no Anesthetic plan: proceed Anesthesia type and monitoring: general GIVS and standard monitoring Results Review: All pre-operative results and documents have been reviewed as part of the pre-operative evaluation. Informed Consent: The patient's anesthetic plan and its attendant risks and benefits were discussed with the patient/family/POA. Questions were solicited and answers provided to the satisfaction of the patient/family/POA."
--- OUTSIDE RECORDS SUMMARY | 2024-07-05 00:30 | XMS_ITS | CONTINUITY OF CARE DOCUMENT ---
Author Name ingris amado Address Unknown Organization [facility] Address [address] [place] [address] Phone [phone] Care Team Providers Care Case Worker Name Role Phone Noemy HALL, Isaac Unavailable [phone] FUNMI HALL, NEREIDA Unavailable NEREIDA CHOUDHARY MD Unavailable [phone] PROBLEMS Condition Status Date Provider Notes FAMILY HX HEART DISEASE active Stella Petersen l OBESITY, MILD completed - Isaac Salguero MD [...] In-person encounter Office Visit Isaac Salguero MD [facility] Hyperlipidemia, unspecifiedHTn; LABS PER PRIMARY,Overweight;will consider diet pill - In-person encounter Office Visit Isaac Salguero MD [facility] PVD;DISTAL BY TRAY - In-person encounter Office Visit Isaac Salguero MD [facility] CAD;NEG DUOLEX 12Hyperlipidemia, unspecifiedAORTIC VALVE SCLEROSIS;NML LV 12DIASTOLIC DYSFUNCTION;EF 52% 2010PVD;DISTAL BY ABIHTn; LABS PER PRIMARY,MITRAL REGURGITATION, MILD - In-person encounter Office Visit Isaac Salguero MD [facility] Hyperlipidemia, unspecifiedPVD;DISTAL BY ABIHTn; LABS PER PRIMARY, - In-person encounter Office Visit Isaac Salguero MD [facility] OBESITY, MILDCAD;NEG DUOLEX 12CABG; SHANTE & 3 V OPEN, 1 V CLOSED 2010FATIGUELOW HDL;ON NIASPAN MAX DOSEHYPERTRIGLYCERIDEMIA ;ON FISH OILAMI, INFERIOR WALL;BY EKG 2010AORTIC VALVE SCLEROSIS;NML LV 12 - In-person encounter Office Visit Isaac Salguero MD [facility] CAD;NEG DUOLEX 12CABG; SHANTE & 3 V OPEN, 1 V CLOSED 2010ANGINA PECTORIS;WILL CATHSTENT - BARE METAL;TO OM 2009 FOR COMPLETE REVASCUZATIONLOW HDL;ON NIASPAN MAX DOSEHYPERTRIGLYCERIDEMIA ;ON FISH OILHyperlipidemia, unspecified - In-person encounter Office Visit Isaac Salguero MD [facility] AMI, SUBENDOCARDIAL;2000DIABE ROBIN MELLITUSHEPATITIS A;HIGH SCHOOLCAD;NEG DUOLEX 12CABG; SHANTE & 3 V OPEN, 1 V CLOSED 2009 VITAL SIGNS Date Observation Value Provider Body Mass Index (Ratio) 28.07 kg/m2 [facility] blood pressure, diastolic 70 mm[Hg] An eatris [facility] blood pressure, systolic 128 mm[Hg] Ane atris [facility] pulse rate 73 /min Ane[facility] oxygen saturation, oximetry 98 % [facility]ne[facility] respiratory rate E&M 16 /min Aneatri s [facility] weight E&M 207 [lb_av] Ane[facility]ris [facility] Body Mass Index (Ratio) 27.63 kg/m2 Juju corcoran Yeager blood pressure, diastolic 90 mm[Hg] Co fadi [facility] blood pressure, systolic 158 mm[Hg] Jennifer espinozaa [facility] pulse rate 76 /min Linn [facility] oxygen saturation, oximetry 98 % Linn Yeager respiratory rate E&M 12 /min Linn Yeager weight E&M 203 [lb_av] Linn Yeager blood pressure, diastolic, left arm 79 [...] [facility] blood pressure, diastolic 72 mm[Hg] Russell kris Hatchelizbaeth [facility] blood pressure, systolic 134 mm[Hg] Jean Hatchelizabeth [facility] pulse rate 77 /min Jean Hatchelizabeth [facility] oxygen saturation, oximetry 99 % Jean Hatchelizabeth [facility] respiratory rate E&M 16 /min Jean Taj phoenix RN weight E&M 207 [lb_av] Jean Rico RN blood pressure, diastolic 94 mm[Hg] Da robson Jovany blood pressure, systolic 138 mm[Hg] Irwin juanpablo Jovany pulse rate 83 /min [facility] oxygen saturation, oximetry 96 % [facility] respiratory rate E&M 83 /min Cesar [facility] weight E&M 221 [lb_av] [facility] ALLERGIES No Known Drug Allergies RESULTS Date Observation Value Provider Reference Range Interpretation Location cholesterol, serum 144 mg/dL [facility] creatinine, serum 0.92 mg/dL [facility] HDL cholesterol, serum 45 mg/dL [facility] triglyceride, serum, fasting 190 mg/dL [facility] lipoprotein, beta, serum, point, quantitative, calculated 77 mg/dL [facility] cholesterol, serum 160 mg/dL [facility] alanine aminotransferase (SGPT), serum 28 1/L [facility] aspartate aminotransferase (SGOT), serum 28 1/L [facility] creatinine, serum 0.95 mg/dL [facility] potassium, serum 4.1 mmol/L [facility] sodium, serum 138 mmol/L [facility] lipoprotein, beta, serum, point, quantitative, calculated 71 mg/dL [facility] cholesterol, serum 133 mg/dL [facility] alanine aminotransferase (SGPT), serum 25 1/L [facility] aspartate aminotransferase (SGOT), serum 31 1/L [facility] creatinine, serum 1.05 mg/dL [facility] potassium, serum 4.6 mmol/L [facility] sodium, serum 139 mmol/L [facility] triglyceride, serum, fasting 229 mg/dL [facility] HDL cholesterol, serum 33 mg/dL [facility] LDL cholesterol, serum 91 mg/dL [facility] cholesterol, serum 170 mg/dL [facility] anion gap, serum 12.4 [facility] globulins, serum, total 3.0 g/dL [facility] estimated glomerular filtration rate >60 [facility] albumin/globulin ratio, serum 1.5 [facility] protein, total, serum 7.4 g/dL [facility] albumin, serum 4.4 g/dL [facility] bilirubin, serum, total 0.80 mg/dL [facility] alkaline phosphatase, serum 101 1/L [facility] alanine aminotransferase (SGPT), serum 55 1/L [facility] aspartate aminotransferase (SGOT), serum 27 1/L [facility] calcium, serum 9.5 mg/dL [facility] blood glucose, fasting 99 mg/dL [facility] creatinine, serum 1.03 mg/dL [facility] urea nitrogen, blood 14.1 mg/dL [facility] carbon dioxide, serum, total 28 mmol/L [facility] chloride, serum 105 mmol/L [facility] potassium, serum 4.4 mmol/L [facility] sodium, serum 141 mmol/L [facility] PTT patient 25.8 s [facility] prothrombin time (patient) 10.5 s Prasad Maradiaga international normalized ratio (INR) 1.0 Prasad Maradiaga [...] PROTONIX VS PLACEBO completed 2 - 8 Siobhanatrmarisa García COMPASS ASA/ RIVAROXABAN completed 9 - [...] Payer name Policy type / Coverage type [place] [employer] republican ID [facility] [id number] [place] [employer] Medicare [id number] TREATMENT PLAN Date Name Performer follow up: [...] chest discomfort Isaac Salguero MD FOLLOW UP:sees funmi Aden MD FOLLOW UP:bryce ya 07/28, will do compass Isaac Salguero MD [...] obtuse marginal 2.0 x 12mm Vision stent [facility] (06/24/2009) C arotid Doppler/Duplex: 50 - [...] obtuse marginal 2.0 x 12mm Vision stent [facility] (06/24/2009) C arotid Doppler/Duplex: 50 - [...] obtuse marginal 2.0 x 12mm Vision stent C (06/24/2009) C arotid Doppler/Duplex: 50 - 69% [...] (06/06/2012) LDL: 77 (06/06/2012) T (06/06/2012) Isaac Salguero MD routine: [...] obtuse marginal 2.0 x 12mm Vision stent [facility] (06/24/2009) C arotid Doppler/Duplex: 50 - [...] TT: 25.8 (06/20/2009) Orders: C omplete Echo (CPT-54546) S tress Test - Nuclear ([id number]) e Prescribe - Check this box if [...] (06/20/2009) T (06/20/2009) Orders: C omplete Echo (CPT-73414) S tress Test - Nuclear ([id number]) e Prescribe - Check this box if [...] (06/20/2009) T (06/20/2009) Orders: C omplete Echo (CPT-50160) S tress Test - Nuclear ([id number]) e Prescribe - Check this box if [...] obtuse marginal 2.0 x 12mm Vision stent [facility] (06/24/2009) Orders: C omplete Echo (CPT-82608) S tress Test - Nuclear ([id number]) e Prescribe - Check this box if eRx is used (CPT-G8553) Isaac Salguero MD routine: O rders: C omplete Echo (CPT-05815) S tress Test - Nuclear ([id number]) e Prescribe - Check this box if eRx is used (CPT-G8553) Isaac Salguero MD routine: O rders: C omplete Echo (CPT-20190) S tress Test - Nuclear ([id number]) e Prescribe - Check this box if [...] obtuse marginal 2.0 x 12mm Vision stent [facility] (06/24/2009) C arotid Doppler/Duplex: 50 - [...] P TT: 25.8 (06/20/2009) Orders: E KG (CPT-62744) C omplete Echo (CPT-50811) S tress Test - Nuclear ([id number]) e Prescribe - Check this box if [...] 25.8 (06/20/2009) Orders: C arotid Duplex Bilateral (CPT-35263) C omplete Echo (CPT-26123) S tress Test - Nuclear ([id number]) e Prescribe - Check this box if [...] obtuse marginal 2.0 x 12mm Vision stent [facility] (06/24/2009) C arotid Doppler/Duplex: Borderline 50 [...] the diagonal to it is 100% occluded. HV-PCL (06/24/2009) C ardiac Cath Comments: Successful Vision stenting of the first obtuse marginal 2.0 x 12mm Vision stent [facility] (06/24/2009) C arotid Doppler/Duplex: Borderline 50 [...] routine: O rders: C arotid Duplex Bilateral (CPT-36370) Isaac Salguero MD routine Isaac Salguero MD [...] from the diagonal to it is 100% occlu [id number]|2024-07-05 11:05:32|2024-07-05 11:05:32|[email or web address].PREOP||||"The patient was informed that is delayed in schedule. Patient acknowledged update. Call light is put in reach to notify staff if patient has any questions."
[2024-07-05 09:55] VITALS: BP 140/68; PULSE 73; RESP 16; TEMP 36.4; O2SAT 100; BMI 24.4
[2024-07-05] MEDS: LACTATED RINGERS 1,000 ML 150 ML IV CONT (10:23)
[2024-07-05 10:28] LABS: Glucose Point of Care 84 mg/dl (65-105)
--- NOTE | 2024-07-05 11:06 | P.PNAN_ITS ---
Anes - Initial Pre Proc Eval Procedure: Operation Date: 07/05/24 10:30 Proposed Procedures p Screening Colonoscopy - Marvin Quintero MD Date/Time: 07/05/24 11:06 Surgeon: Marvin Quintero MD Pre Op Diagnosis: personal hx of colon polyps Patient Data Age: 73 Gender: M Height: 1.83 m Weight: 81.6 kg Last Vital Signs Temp 36.4 C 07/05/24 09:55 Pulse 73 07/05/24 09:55 Resp 16 07/05/24 09:55 BP 140/68 07/05/24 09:55 Pulse Ox 100 07/05/24 09:55 O2 Del Method Room Air 07/05/24 09:55 Allergies Allergy/AdvReac Type Severity Reaction Status Date / Time No Known Allergies Allergy Verified 07/05/24 10:02 Home Medications Medication Instructions Recorded Confirmed Type aspirin 81 mg tablet,delayed 81 mg PO DAILY 06/28/24 07/05/24 History release (Adult Aspirin Regimen) dapagliflozin propanediol 5 mg 5 mg PO DAILY 06/28/24 07/05/24 History tablet (Farxiga) glimepiride 2 mg tablet 2 mg PO DAILY 06/28/24 07/05/24 History lisinopril 40 mg tablet 40 mg PO DAILY 06/28/24 07/05/24 History metformin 1,000 mg tablet 1,000 mg PO BID 06/28/24 07/05/24 History metoprolol succinate 50 mg 50 mg PO DAILY 06/28/24 07/05/24 History tablet,extended release 24 hr multivitamin (Daily Multi-Vitamin 1 tablet PO DAILY 06/28/24 07/05/24 History tablet) rosuvastatin 20 mg tablet 20 mg PO DAILY 06/28/24 07/05/24 History Laboratory Tests 07/05/24 10:14 POC Capillary Glucose 84 mg/dl (65-105) Patient hx anesthesia problems: none Family hx anesthesia problems: none Results Review: All pre-operative results and documents have been reviewed as part of the pre- operative evaluation. [facility] Social History Social History Smoking status: Never smoker Alcohol intake: never Substance use: never Substance use type: does not use Living arrangements: with family Spiritual care concerns: No Anes - Eval Final PreProcedure Day of Procedure 07/05/24 11:06 Patient weight: normal Heart: regular rate and rhythm Lungs: clear to auscultation Airway: Mallampati scale class II Neurological: alert and oriented Last oral intake: >/= 8 hours ASA classification: III Emergent: no Anesthetic plan: proceed Anesthesia type and monitoring: general GIVS and standard monitoring Results Review: All pre-operative results and documents have been reviewed as part of the pre- operative evaluation. Informed Consent: The patient's anesthetic plan and its attendant risks and benefits were discussed with the patient/family/POA. Questions were solicited and answers provided to the satisfaction of the patient/family/POA.
--- NOTE | 2024-07-05 11:38 | PM.IMHP ---
H&P: HPI History of Present Illness Date/Time: 07/05/24 11:38 Chief Complaint: screening colonoscopy Narrative: This is the patient's 2nd colonoscopy after more than 10 years. There are no GI symptoms and there is no family history of colorectal cancer. Review of Systems Review of Systems: All systems reviewed & are unremarkable except as noted in HPI and below PMFSH Social History Social History Smoking status: Never smoker Alcohol intake: never Substance use: never Substance use type: does not use Living arrangements: with family Spiritual care concerns: No Meds Home Medications and Allergies Home Medications Medication Instructions Recorded Confirmed Type aspirin 81 mg tablet,delayed 81 mg PO DAILY 06/28/24 07/05/24 History release (Adult Aspirin Regimen) dapagliflozin propanediol 5 mg 5 mg PO DAILY 06/28/24 07/05/24 History tablet (Farxiga) glimepiride 2 mg tablet 2 mg PO DAILY 06/28/24 07/05/24 History lisinopril 40 mg tablet 40 mg PO DAILY 06/28/24 07/05/24 History metformin 1,000 mg tablet 1,000 mg PO BID 06/28/24 07/05/24 History metoprolol succinate 50 mg 50 mg PO DAILY 06/28/24 07/05/24 History tablet,extended release 24 hr multivitamin (Daily Multi-Vitamin 1 tablet PO DAILY 06/28/24 07/05/24 History tablet) rosuvastatin 20 mg tablet 20 mg PO DAILY 06/28/24 07/05/24 History Allergies Allergy/AdvReac Type Severity Reaction Status Date / Time No Known Allergies Allergy Verified 07/05/24 10:02 Vital Signs Vital Signs - 24 hr 07/05/24 09:55 Temperature 97.6 F Pulse Rate 73 Respiratory Rate 16 Blood Pressure 140/68 Pulse Oximetry 100 Oxygen Delivery Room Air Exam Const: General: cooperative and healthy appearing Resp: Effort & Inspection: normal respiratory effort and able to speak in complete sentences Auscultation: clear to auscultation bilaterally Cardio: Rate: regular rate Rhythm: regular rhythm GI: Inspection: normal to inspection GI Palp: No No hepatosplenomegaly present Auscultation: normal bowel sounds Rectal Exam: deferred Skin: General skin exam: normal color Psych: Appearance: grossly normal Mental Status: mental status grossly normal Assessment and Plan Assessment and plan (1) Encounter for screening colonoscopy: Code(s): Z12.11 - Encounter for screening for malignant neoplasm of colon Status: Acute Assessment and Plan: The patient is deemed a good candidate for the procedure. Consent signed. Will proceed.
[2024-07-05 12:02] VITALS: BP 95/38; PULSE 57; RESP 16; O2SAT 99
[2024-07-05 12:12] VITALS: BP 105/39; PULSE 55; RESP 15; O2SAT 99
[2024-07-05 12:22] VITALS: BP 116/49; PULSE 54; RESP 20; O2SAT 100
== END 2024-07-05 12:31 | disposition home or self-care (01) ==
PROVIDERS: PCP Internal Medicine; Referring Provider Internal Medicine; Visit Provider Internal Medicine Gastroenterology
PROC: 0DJD8ZZ Inspection of Lower Intestinal Tract, Via Natural or Artificial Opening Endoscopic (ICD-10-PCS; CPT 45378; principal; 2024-07-05 10:30)
DX: Z12.11 Encounter for screening for malignant neoplasm of colon (principal); Z86.0100 Personal history of colon polyps, unspecified; Z79.84 Long term (current) use of oral hypoglycemic drugs
CPT/HCPCS: G0105; 82948; J2003; J2704; J7120